=== PATIENT | female | born 1980 | race Caucasian/White ===

== ENCOUNTER 2018-10-26 12:00 | Emergency (ER) | payer BC ==
[2018-10-26 12:06] VITALS: TEMP 98.1
[2018-10-26] MEDS ORDERED: SODIUM CHLORIDE 0.9% 1,000 ML IV STA (12:17)
--- NOTE | 2018-10-26 12:30 | ED ---
General Adult HPI - General Chief complaint: Headache Stated complaint: head pain Time Seen by Provider: 10/26/18 12:04 Source: patient, RN notes reviewed Mode of arrival: ambulatory Limitations: no limitations - History of Present Illness Initial comments: Patient is a pleasant 38-year-old female presenting to the emergency Department with complaint of headache. Patient does have a history of migraine headaches that she gets around once per month. Patient has had 3 headaches this week that feel different from her typical migraine headaches. Headaches have a quick onset within minutes. First headache lasted only 10 minutes and was around 6 days ago. Second headache lasted around 30 minutes. Third headache was 2 days ago and lasted a couple of hours. This one was more severe. Headache was right-sided. Patient did have associated photophobia and lightheadedness and nausea. At this time patient only has mild discomfort rated 2 or 3/10 and is described as pressure. Patient does have a family history of cerebral aneurysm on her mother's side of the family including her mother. Patient denies ever having confusion or speech problems. No weakness or loss of sensation. No fevers. - Related Data Home Medications Medication Instructions Recorded Confirmed diphenhydrAMINE HCL [Benadryl] 25 mg PO Q6HR PRN 10/26/18 10/26/18 Allergies Allergy/AdvReac Type Severity Reaction Status Date / Time No Known Allergies Allergy Verified 10/26/18 12:20 Review of Systems ROS Statement: Those systems with pertinent positive or pertinent negative responses have been documented in the HPI. ROS Other: All systems not noted in ROS Statement are negative. Constitutional: Denies: fever Eyes: Denies: eye pain ENT: Denies: ear pain Respiratory: Denies: cough Cardiovascular: Denies: chest pain Endocrine: Denies: fatigue Gastrointestinal: Denies: abdominal pain Genitourinary: Denies: urgency Musculoskeletal: Denies: back pain Skin: Denies: rash Neurological: Reports: as per HPI, headache. Denies: weakness, numbness, confusion Past Medical History Past Medical History: No Reported History History of Any Multi-Drug Resistant Organisms: None Reported Additional Past Surgical History / Comment(s): LEFT NEPHRECTOMY Past Psychological History: No Psychological Hx Reported Smoking Status: Never smoker Past Alcohol Use History: None Reported Past Drug Use History: None Reported General Exam Limitations: no limitations General appearance: alert, in no apparent distress Head exam: Present: atraumatic Eye exam: Present: normal appearance, PERRL, EOMI. Absent: nystagmus ENT exam: Present: normal oropharynx Neck exam: Present: normal inspection Respiratory exam: Present: normal lung sounds bilaterally Cardiovascular Exam: Present: regular rate, normal rhythm GI/Abdominal exam: Present: soft. Absent: tenderness Extremities exam: Present: normal inspection Neurological exam: Present: alert, CN II-XII intact. Absent: motor sensory deficit Expanded Neurological exam: Present: protecting the airway Speech: Present: fluid speech Cranial nerves: EOM's Intact: Normal, Facial Sensation: Normal Cerebellar function: Finger to Nose: Normal Sensory exam: Upper Extremity Light Touch: Normal, Lower Extremity Light Touch: Normal Motor strength exam: RUE: 5, LUE: 5, RLE: 5, LLE: 5 Eye Response: (4) open spontaneously Motor Response: (6) obeys commands Verbal Response: (5) oriented Psychiatric exam: Present: normal affect, normal mood Skin exam: Present: normal color Course Vital Signs 10/26/18 10/26/18 12:03 14:48 Temperature 98.1 F Pulse Rate 75 79 Respiratory 16 18 Rate Blood Pressure 141/79 109/82 O2 Sat by Pulse 100 99 Oximetry Medical Decision Making - Medical Decision Making Patient reevaluated and still resting comfortably in bed. Patient states no significant complaints at this time. Patient family updated on results and need for follow-up. - Lab Data Result diagrams: 10/26/18 12:21 10/26/18 12:21 Lab Results 10/26/18 10/26/18 10/26/18 Range/Units 12:20 12:21 12:21 WBC 9.8 (3.8-10.6) k/uL RBC 5.10 (3.80-5.40) m/uL Hgb 12.8 (11.4-16.0) gm/dL Hct 40.6 (34.0-46.0) % MCV 79.7 L (80.0-100.0) fL MCH 25.1 (25.0-35.0) pg MCHC 31.5 (31.0-37.0) g/dL RDW 16.0 H (11.5-15.5) % Plt Count 571 H (150-450) k/uL Neutrophils % 70 % Lymphocytes % 19 % Monocytes % 6 % Eosinophils % 1 % Basophils % 1 % Neutrophils # 6.8 (1.3-7.7) k/uL Lymphocytes # 1.9 (1.0-4.8) k/uL Monocytes # 0.6 (0-1.0) k/uL Eosinophils # 0.1 (0-0.7) k/uL Basophils # 0.1 (0-0.2) k/uL Hypochromasia Slight Anisocytosis Slight PT (9.0-12.0) sec INR (<1.2) APTT (22.0-30.0) sec Sodium 142 (137-145) mmol/L Potassium 4.7 (3.5-5.1) mmol/L Chloride 105 (98-107) mmol/L Carbon Dioxide 25 (22-30) mmol/L Anion Gap 12 mmol/L BUN 12 (7-17) mg/dL Creatinine 0.68 (0.52-1.04) mg/dL Est GFR (CKD-EPI)AfAm >90 (>60 ml/min/1.73 sqM) Est GFR (CKD-EPI)NonAf >90 (>60 ml/min/1.73 sqM) Glucose 94 (74-99) mg/dL Calcium 10.0 (8.4-10.2) mg/dL Total Bilirubin 0.3 (0.2-1.3) mg/dL AST 28 (14-36) U/L ALT 31 (9-52) U/L Alkaline Phosphatase 64 (38-126) U/L Total Protein 8.0 (6.3-8.2) g/dL Albumin 4.6 (3.5-5.0) g/dL Urine HCG, Qual Not Detected (Not Detectd) 10/26/18 Range/Units 12:21 WBC (3.8-10.6) k/uL RBC (3.80-5.40) m/uL Hgb (11.4-16.0) gm/dL Hct (34.0-46.0) % MCV (80.0-100.0) fL MCH (25.0-35.0) pg MCHC (31.0-37.0) g/dL RDW (11.5-15.5) % Plt Count (150-450) k/uL Neutrophils % % Lymphocytes % % Monocytes % % Eosinophils % % Basophils % % Neutrophils # (1.3-7.7) k/uL Lymphocytes # (1.0-4.8) k/uL Monocytes # (0-1.0) k/uL Eosinophils # (0-0.7) k/uL Basophils # (0-0.2) k/uL Hypochromasia Anisocytosis PT 9.9 (9.0-12.0) sec INR 1.0 (<1.2) APTT 25.6 (22.0-30.0) sec Sodium (137-145) mmol/L Potassium (3.5-5.1) mmol/L Chloride (98-107) mmol/L Carbon Dioxide (22-30) mmol/L Anion Gap mmol/L BUN (7-17) mg/dL Creatinine (0.52-1.04) mg/dL Est GFR (CKD-EPI)AfAm (>60 ml/min/1.73 sqM) Est GFR (CKD-EPI)NonAf (>60 ml/min/1.73 sqM) Glucose (74-99) mg/dL Calcium (8.4-10.2) mg/dL Total Bilirubin (0.2-1.3) mg/dL AST (14-36) U/L ALT (9-52) U/L Alkaline Phosphatase (38-126) U/L Total Protein (6.3-8.2) g/dL Albumin (3.5-5.0) g/dL Urine HCG, Qual (Not Detectd) - Radiology Data Radiology results: report reviewed (Computed tomography scan of the brain shows no acute process. CT angiogram of the brain shows no occlusion, dissection, or aneurysm.) Disposition Clinical Impression: Headache Disposition: HOME SELF-CARE Condition: Stable Instructions: Acute Headache (ED) Additional Instructions: Please follow-up with primary care physician in the next day or 2 for recheck. Return for increased pain, confusion, weakness, speech problems, worsening or change in symptoms or any other concerns. Is patient prescribed a controlled substance at d/c from ED?: No Referrals: Farhan Mix MD [Primary Care Provider] - 1-2 days Time of Disposition: 15:26
[2018-10-26 12:48] LABS: Anisocytosis Slight; Basophils # (A) 0.1 k/uL (0-0.2); Basophils % (A) 1 %; Eosinophils # (A) 0.1 k/uL (0-0.7); Eosinophils % (A) 1 %; HCT 40.6 % (34.0-46.0); HGB 12.8 gm/dL (11.4-16.0); Hypochromasia Slight; Lymphocytes # (A) 1.9 k/uL (1.0-4.8); Lymphocytes % (A) 19 %; MCH 25.1 pg (25.0-35.0); MCHC 31.5 g/dL (31.0-37.0); MCV 79.7 fL (80.0-100.0); Mean Platelet Volume 6.4; Monocytes # (A) 0.6 k/uL (0-1.0); Monocytes % (A) 6 %; Neutrophils # (A) 6.8 k/uL (1.3-7.7); Neutrophils % (A) 70 %; Platelet Count 571 k/uL (150-450); WBC 9.8 k/uL (3.8-10.6)
[2018-10-26 12:50] LABS: ALT 31 U/L (9-52); AST 28 U/L (14-36); Albumin 4.6 g/dL (3.5-5.0); Alkaline Phosphatase 64 U/L (38-126); Anion Gap 12 mmol/L; Blood Urea Nitrogen 12 mg/dL (7-17); Carbon Dioxide 25 mmol/L (22-30); Chloride 105 mmol/L (98-107); Glucose 94 mg/dL (74-99); Potassium 4.7 mmol/L (3.5-5.1); Sodium 142 mmol/L (137-145); Total Bilirubin 0.3 mg/dL (0.2-1.3)
[2018-10-26 13:02] LABS: Partial Thromboplastin Time 25.6 sec (22.0-30.0); Prothrombin Time 9.9 sec (9.0-12.0)
--- NOTE | 2018-10-26 13:29 | CT ---
EXAMINATION TYPE: CT brain wo con DATE OF EXAM: 10/26/2018 COMPARISON: HISTORY: Headache CT DLP: 1897.[address] of the brain was performed. The ventricles, basal cisterns and sulci overlying the cerebral convexities demonstrate a normal appe arance. There is no evidence for intracranial hemorrhage or sulcal effacement. No mass effects are seen. Osseous calvarium is intact. If symptoms persist consider MRI as clinically warranted. IMPRESSION: 1. No acute intracranial process is seen at this time.
[2018-10-26 14:50] VITALS: BP 109/82; PULSE 79; RESP 18
--- NOTE | 2018-10-26 15:18 | CT ---
EXAMINATION TYPE: CT angio head DATE OF EXAM: 10/26/2018 HISTORY: Headache COMPARISON: CT brain dictation of the same date CT DLP: 1897.1 mGycm. Automated Exposure Control for Dose Reduction was Utilized. TECHNIQUE: CTA scan of the neck is performed with IV Contrast, patient injected with 100 mL of Isovu e 370, axial images are obtained, coronal and sagittal reformatted images are reviewed. Three-D recon structed images are created on an independent workstation and reviewed. FINDINGS: Carotid/Vascular Structures: There is no hemodynamically significant stenosis within the visualized c ervical portions or intracranial portions of the internal carotid arteries, vertebral arteries, basil ar arteries, or major intracranial vasculature. No aneurysm is identified. Posterior communicating ar teries appear diminutive but do appear present. [place] appears intact. No dissection or foc al stenosis is seen. No arterial venous malformation is identified. Visualized portions of the brain are discussed in the CT brain dictation of the same date. IMPRESSION: No evidence of intracranial vascular occlusion, dissection or aneurysm.
== END 2018-10-26 15:33 | disposition home or self-care (01) ==
LOC: EC 12:00
DX: R51 Headache (principal); R11.0 Nausea; H53.149 Visual discomfort, unspecified; Z90.5 Acquired absence of kidney; Z82.49 Family history of ischemic heart disease and other diseases of the circulatory system
CPT/HCPCS: 36415; 80053; 85025; 85610; 85730; 81025; 70496; 70450; 99284; 96360; Q9967

== ENCOUNTER → 2018-11-20 | Outpatient (CLI) | payer BC ==
--- NOTE | 2018-11-20 11:06 | MR ---
EXAMINATION TYPE: MR brain wo con DATE OF EXAM: 11/20/2018 COMPARISON: 10/26/[address] [employer] head demonstrating no acute intracranial process and no evidence of intracranial vascular occlusion, dissection or aneurysm. HISTORY: Primary thunderclap headache TECHNIQUE: Multiplanar, multisequence images of the brain and brainstem is performed without intravenous contras t. FINDINGS: Diffusion weighted images demonstrate no evidence of a recent infarct or other diffusion ab normality. There is no extra-axial fluid collection or significant white matter signal abnormality. The ventricular system and cisternal spaces are normal in size and appearance. The brain volume is age appropriate. Midline structures demonstrate normal morphology. The craniocervical junction appears within normal limits. The dural venous sinuses appear patent. The visualized sinuses are clear and the globes are intact. There is near complete opacification of the right maxillary sinus and trace amount of middle ear fluid findings suggest otomastoiditis. There is leftward nasal septal deviation and left-sided mu cosal hypertrophy of the nasal turbinates. Major intracranial flow voids are maintained. Secretions a re noted in the posterior nasopharynx. IMPRESSION: 1. Interval near complete opacification of the right mastoid air cells and middle ear cavity fluid reyes ggesting otomastoiditis. Correlate with clinical symptoms. Left-sided nasal turbinate mucosal hypertr ophy and leftward nasal septal deviation are also seen. 2. No significant white matter change, no acute infarct, and no midline shift. 3. If there is further concern for aneurysm MRA could be performed despite the negative CT angiogram head.
== END | disposition home or self-care (01) ==
LOC: RADMRIMAIN 08:18
PROVIDERS: ATTEND Family Medicine
DX: G44.53 Primary thunderclap headache (principal)
CPT/HCPCS: 70551

== ENCOUNTER → 2019-03-02 | Outpatient (CLI) | payer BC ==
--- NOTE | 2019-03-02 10:34 | MR ---
EXAMINATION TYPE: MR angio head wo con DATE OF EXAM: 03/02/2019 COMPARISON: CTA head October 26, 2018 HISTORY: thunderclap headache vascular ALBERTO TECHNIQUE: Time of flight images focusing on the [place] were performed without contrast.. 2-D and 3-D postprocessing imaging is performed on MRI scanner. FINDINGS: There is codominant vertebral basilar system. Vertebral arteries are patent to basilar junc tion. There are patent bilateral posterior communicating arteries seen. There is no significant focal stenosis or aneurysmal change in the posterior circulation. There is patent anterior communicating artery. There is no significant focal stenosis or aneurysmal c hange in the anterior circulation. IMPRESSION: No significant focal stenosis or aneurysmal change at the level of the [place]. No significant change from comparison CTA head study.
== END | disposition home or self-care (01) ==
LOC: RADMRIMAIN 09:05
PROVIDERS: ATTEND Psychiatry & Neurology Neurology
DX: G44.1 Vascular headache, not elsewhere classified (principal); G44.53 Primary thunderclap headache
CPT/HCPCS: 70544

== ENCOUNTER 2019-05-22 09:31 | Day surgery (SDC) | payer BC ==
[2019-05-19 15:18] VITALS: BMI 30.9
[~2019-05-22 09:31] MED LIST: LACTATED RINGERS 1,000 ML IV SCH
[2019-05-22 09:51] VITALS: TEMP 97.2
[2019-05-22] MEDS ORDERED: LIDOCAINE 1% 20 ML VIAL (10MG/ML) FOR IV START INTRADERMA ONE (10:07)
[2019-05-22] MEDS ORDERED: PROPOFOL 10 MG/ML 20 ML VIAL IV ONE (10:44)
--- NOTE | 2019-05-22 11:02 | P.PCN ---
Date of Procedure: 05/22/19 Procedure(s) Performed: BRIEF HISTORY: Patient is a 38-year-old pleasant white female scheduled for an elective colonoscopy as a part of evaluation of intermittent diarrhea for the last 2 years duration. She has these episodes once a month and lasts for about a week to 10 days. During these episodes has bowel movements any from 10-12 a day which are loose to watery in consistency. In between episodes she is asymptomatic. In view of the symptoms she is scheduled for colonoscopy to evaluate further. PROCEDURE PERFORMED: Colonoscopy with biopsies. PREOPERATIVE DIAGNOSIS: Chronic intermittent diarrhea. IV sedation per Anesthesia. PROCEDURE: After informed consent was obtained, the patient, was brought into the endoscopy unit. IV sedation was administered by Anesthesia under continuous monitoring. Digital rectal examination was normal. Initially the Olympus CF-160 flexible video colonoscope was then inserted in the rectum, gradually advanced into the cecum without any difficulty. Careful examination was performed as the scope was gradually being withdrawn. Ileocecal valve and the appendiceal orifice were visualized and appeared normal. Prep was excellent. The ileocecal valve appeared deformed and there was narrowing of the terminal ileum and the scope could not be advanced into this area. There were multiple pseudopolyps noted on the ileocecal valve with scattered erosions and ulcerations and diffuse erosions in the cecum and multiple biopsies were done from these areas. The rest of themMucosa of the cecum, ascending colon, transverse colon, descending colon, sigmoid colon, and rectum appeared normal. Retroflexion was performed in the rectum and no lesions were seen. The patient tolerated the procedure well. IMPRESSION: Deformed ileocecal valve with narrowing suspicious for Crohn's disease Pseudopolyps noted on the ileocecal valve as well as part of the cecum status post multiple biopsies. Terminal ileum not intubated RECOMMENDATIONS: Findings of this examination were discussed with the patient as well as a family. She was advised to follow with the biopsy results and she'll be seen in office in 2 weeks...
[2019-05-22 11:29] VITALS: BP 115/62; PULSE 60; RESP 16
== END 2019-05-22 12:09 | disposition home or self-care (01) ==
LOC: ORWHC2ENDO 09:31
PROVIDERS: ATTEND Internal Medicine Gastroenterology
DX: K52.9 Noninfective gastroenteritis and colitis, unspecified (principal)
CPT/HCPCS: 81025; 88305; 45380; J2704

== ENCOUNTER → 2019-06-02 | Outpatient (CLI) | payer BC ==
[2019-06-02 16:26] LABS: Anisocytosis Slight; HCT 37.7 % (34.0-46.0); HGB 11.5 gm/dL (11.4-16.0); Hypochromasia Marked; MCH 24.7 pg (25.0-35.0); MCHC 30.4 g/dL (31.0-37.0); MCV 81.2 fL (80.0-100.0); Mean Platelet Volume 7.1; Platelet Count 534 k/uL (150-450); RBC 4.64 m/uL (3.80-5.40); RDW 16.1 % (11.5-15.5); WBC 9.4 k/uL (3.8-10.6)
[2019-06-02 17:14] LABS: Erythrocyte Sedimentation Rate 18 mm/hr (0-20)
[2019-06-03 00:14] LABS: Folate, Serum 18.6 ng/mL
[2019-06-03 00:42] LABS: Hepatitis A Antibody IgM Non-Reactive (Non-Reactive); Hepatitis B Core IgM Non-Reactive (Non-Reactive)
== END | disposition home or self-care (01) ==
LOC: LABWHC1 15:24
PROVIDERS: ATTEND Physician Assistant
DX: K50.80 Crohn's disease of both small and large intestine without complications (principal)
CPT/HCPCS: 36415; 80074; 82607; 82746; 85027; 85652; 86140

== ENCOUNTER → 2019-06-25 | Outpatient (CLI) | payer BC ==
--- NOTE | 2019-06-25 13:17 | CT ---
EXAMINATION TYPE: CT abdomen pelvis w con DATE OF EXAM: 06/25/2019 HISTORY: Episode of gross hematuria x 2-3 days approximately [address] DLP: 1392mGycm Automated Exposure Control for Dose Reduction was Utilized. CONTRAST: CT scan of the abdomen and pelvis is performed with IV Contrast, patient injected with 100 mL of Isov ue M300. COMPARISON: None. FINDINGS: LUNG BASES: No significant abnormality is appreciated. LIVER/GB: Liver is diffusely low dense consistent with fatty infiltration. PANCREAS: No significant abnormality is seen. SPLEEN: No significant abnormality is seen. ADRENALS: No significant abnormality is seen. KIDNEYS: Symmetrical medullary uptake and excretion from both kidneys without concerning solid or cys tic renal mass or hydronephrosis identified bilaterally no renal calculi are observed. No intralumina l calculus in poorly distended bladder. BOWEL: Oral contrast reaches level of rectum. Severe wall thickening at level of the terminal ileum i s noted. No suspicious small and large bowel dilatation. UTERUS/ADNEXA: Anteverted uterus is seen. Central 1.3 cm hyperdensity lower uterine segment endometri al canal sagittal image 33 corresponding to axial image 78 of uncertain etiology. No tampon identifie d in the vaginal canal to suggest active bleeding. Consider hCG correlation to exclude positive IUP t salma felt not likely. Favor something such as submucosal fibroid or much less likely large endometri al polyp. Right ovary is normal in size near axial image 73 with rim hyperdense 1.4 cm cyst could ref lect corpus luteal cyst from recent ovulation. There is a partially calcified 1.2 cm round area adjac ent to medial margin right ovary and anterior to uterus with indistinct fat planes favoring subserosa l or exophytic small fibroid. Left ovary not identified. No suspicious left pelvic masses are seen LYMPH NODES: No greater than 1cm abdominal or pelvic lymph nodes are appreciated. OSSEOUS STRUCTURES: No significant abnormality is seen. OTHER: No significant additional abnormality is seen. IMPRESSION: 1. No suspicious findings seen to account for patient's symptoms hematuria. 2. Moderate to severe enteritis at level of the terminal ileum may be chronic in age as there is no s ignificant current surrounding fat stranding. Follow-up advised to exclude Crohn's disease. 3. Attention to uterus/adnexa as detailed above. Clinical correlation advised. Consider pelvic ultras ound follow-up.
== END | disposition home or self-care (01) ==
LOC: RADCTMAIN 09:49
PROVIDERS: ATTEND Family Medicine
DX: K52.9 Noninfective gastroenteritis and colitis, unspecified (principal); R31.9 Hematuria, unspecified; N91.2 Amenorrhea, unspecified
CPT/HCPCS: 81025; 74177; Q9967

== ENCOUNTER → 2020-01-25 | Outpatient (CLI) | payer BC ==
[2020-01-25 17:08] LABS: HCT 39.3 % (34.0-46.0); HGB 11.9 gm/dL (11.4-16.0); Hypochromasia Slight; MCH 24.5 pg (25.0-35.0); MCHC 30.3 g/dL (31.0-37.0); MCV 80.9 fL (80.0-100.0); Platelet Count 496 k/uL (150-450); RBC 4.86 m/uL (3.80-5.40); RDW 15.4 % (11.5-15.5); WBC 9.5 k/uL (3.8-10.6)
[2020-01-25 17:24] LABS: ALT 17 U/L (4-34); AST 27 U/L (14-36); African American GFR (CKD) >90 (>60 ml/min/1.73 sqM); Albumin 4.7 g/dL (3.5-5.0); Alkaline Phosphatase 49 U/L (38-126); Anion Gap 9 mmol/L; Blood Urea Nitrogen 9 mg/dL (7-17); C Reactive Protein 8.3 mg/L (<10.0); Calcium 9.4 mg/dL (8.4-10.2); Carbon Dioxide 28 mmol/L (22-30); Chloride 102 mmol/L (98-107); Glucose 113 mg/dL (74-99); Non-African American GFR(CKD) >90 (>60 ml/min/1.73 sqM); Potassium 4.4 mmol/L (3.5-5.1); Sodium 139 mmol/L (137-145); Total Bilirubin 0.2 mg/dL (0.2-1.3); Total Protein 7.9 g/dL (6.3-8.2)
[2020-01-25 17:56] LABS: Erythrocyte Sedimentation Rate 11 mm/hr (0-20)
--- NOTE | 2020-01-26 07:00 | US ---
EXAMINATION TYPE: US pelvis complete transvag DATE OF EXAM: 01/25/2020 COMPARISON: NONE CLINICAL HISTORY: R10.2 Pelvic pain. TECHNIQUE: Transvaginal (TV) and Transabdominal (TA) . Transabdominal sonographic images of the pel vis were acquired. Transvaginal sonographic images were medically necessary to better assess the fol lowing anatomy: uterus, endometrium History of endometriosis, endometrioma in left ovary removed with oophorectomy. Date of LMP: 01-02-20 EXAM MEASUREMENTS: Uterus: 7.8 x 3.0 x 4.0 cm Endometrial Stripe: 1.2 cm Right Ovary: 2.6 x 1.7 x 1.4 cm Left Ovary: Surgically absent 1. Uterus: Heterogenous uterus, with probable fibroids, the largest measuring 1.7 x 1.4 x 1.3cm. This could be submucosal in location. 2. Endometrium: Within normal limits of size for a premenopausal females 3. Right Ovary: wnl 4. Left Ovary: Surgically absent 5. Bilateral Adnexa: wnl 6. Posterior cul-de-sac: wnl IMPRESSION: 1. Heterogenous myometrium with probable leiomyomas the most circumscribed and largest measuring 1.7 cm that may be submucosal in location. 2. Surgical absence of the left ovary.
== END | disposition home or self-care (01) ==
LOC: RADUSWWP 15:38
PROVIDERS: ATTEND Family Medicine
DX: R10.2 Pelvic and perineal pain (principal); K50.80 Crohn's disease of both small and large intestine without complications; Z90.721 Acquired absence of ovaries, unilateral
CPT/HCPCS: 36415; 76830; 76856; 80053; 85027; 85652; 86140

== ENCOUNTER → 2020-05-10 | Outpatient (CLI) | payer BC ==
[2020-05-10 15:05] LABS: HCT 36.7 % (34.0-46.0); HGB 11.4 gm/dL (11.4-16.0); Hypochromasia Marked; MCH 25.2 pg (25.0-35.0); MCHC 31.1 g/dL (31.0-37.0); Mean Platelet Volume 7.5; Platelet Count 525 k/uL (150-450); RBC 4.53 m/uL (3.80-5.40); RDW 15.7 % (11.5-15.5)
[2020-05-10 16:28] LABS: Erythrocyte Sedimentation Rate 13 mm/hr (0-20)
[2020-05-10 23:37] LABS: African American GFR (CKD) 109.2 (60.0-200.0); Albumin 4.7 g/dL (3.80-4.90); Albumin/Globulin Ratio 1.96 (1.60-3.17); Anion Gap 8.6 mmol/L (4.00-12.00); BUN/Creat Ratio 16.25 Ratio (12.00-20.00); C Reactive Protein 0.5 mg/dL (0.0-0.8); Calcium 9.7 mg/dL (8.7-10.3); Carbon Dioxide 27.4 mmol/L (21.6-31.8); Globulin 2.4 g/dL (1.6-3.3); Non-African American GFR(CKD) 94.2 (60.0-200.0); Potassium 4.3 mmol/L (3.5-5.5); Total Bilirubin 0.4 mg/dL (0.3-1.2); Total Protein 7.1 g/dL (6.2-8.2)
== END | disposition home or self-care (01) ==
LOC: LABWHC1 14:34
PROVIDERS: ATTEND Physician Assistant
DX: K50.80 Crohn's disease of both small and large intestine without complications (principal)
CPT/HCPCS: 36415; 80053; 85027; 85652; 86140

== ENCOUNTER 2021-03-18 05:54 | Emergency (ER) | payer BC ==
[2021-03-18 06:02] VITALS: BP 145/90; PULSE 78; RESP 19; TEMP 97.9
--- NOTE | 2021-03-18 06:24 | ED ---
Abdominal Pain HPI - General Chief Complaint: Abdominal Pain Stated Complaint: abd/back pain,nausea Time Seen by Provider: 03/18/21 06:05 Source: patient Mode of arrival: wheelchair - History of Present Illness Initial Comments: 40-year-old female with hx of crohns diease on joleen presenting to the emergency department today for chief complaint of left lower quadrant abdominal pain that radiates to the back x 2 days. pt states that for the past two days she has had llq pain that radiates to the back. she states it seems to go away with defecation. Pt states she has had nausea associated with the pain. Denies rectal bleeding. No dark stool. Denies upper abdominal pain. Pt denies fevers. Pt denies vaginal bleeding, . But states she has had blood in her urine x 2 days, no pain. Patient denies chest pain dyspnea. patient appears nontoxic - Related Data Home Medications Medication Instructions Recorded Confirmed Adalimumab [Humira Pen] 40 mg SQ Q14D 03/18/21 03/18/21 Previous Rx's Medication Instructions Recorded Ketorolac [Toradol] 10 mg PO Q8H PRN 3 Days #9 tab 03/18/21 Allergies Allergy/AdvReac Type Severity Reaction Status Date / Time No Known Allergies Allergy Verified 03/18/21 07:56 Review of Systems ROS Statement: Those systems with pertinent positive or pertinent negative responses have been documented in the HPI. ROS Other: All systems not noted in ROS Statement are negative. Past Medical History Past Medical History: No Reported History Additional Past Medical History / Comment(s): chrons History of Any Multi-Drug Resistant Organisms: None Reported Additional Past Surgical History / Comment(s): L Oophorectomy. Past Anesthesia/Blood Transfusion Reactions: No Reported Reaction Past Psychological History: No Psychological Hx Reported Smoking Status: Never smoker Past Alcohol Use History: None Reported Past Drug Use History: None Reported - Past Family History Mother Family Medical History: No Reported History General Exam - General Exam Comments Initial Comments: General: The patient is awake and alert, in no distress Eye: +3 mm pupils are equal, round and reactive to light, extra-ocular movements are intact. No nystagmus. There is normal conjunctiva bilaterally. No signs of icterus. Ears, nose, mouth and throat: There are moist mucous membranes and no oral lesions. Neck: The neck is supple, there is no tenderness or JVD. Cardiovascular: There is a regular rate and rhythm. No murmur, rub or gallop is appreciated. Respiratory: Lungs are clear to auscultation, respirations are non-labored, breath sounds are equal. No wheezes, stridor, rales, or rhonchi. Gastrointestinal: Soft, non-distended, diffuse lower abdominal tenderness, more significant in the LLQ., abdomen without masses or organomegaly noted. There is no rebound or guarding present. Musculoskeletal: Normal ROM, no tenderness. Strength 5/5. Sensation intact. Radial and DP pulses equal bilaterally 2+. Neurological: A&O x 3. CN II-XII intact grossly, There are no obvious motor or sensory deficits. Coordination appears grossly intact. Speech is normal. Skin: Skin is warm and dry and no rashes or lesions are noted. Psychiatric: Cooperative, appropriate mood & affect, normal judgment. Course Vital Signs 03/18/21 05:57 Temperature 97.9 F Pulse Rate 78 Respiratory 19 Rate Blood Pressure 145/90 O2 Sat by Pulse 100 Oximetry Medical Decision Making - Medical Decision Making LLQ pain. LUVJ stone. Hx hematuria. this all clinically correlates.no fevers. pain controlled. no hx of dark or bloody stools. no recent HgB in last 10 months for accurate comparison. pt has standing order for cbc. i recommended repeat in 2 days. return for rectal bleeding or worsening HgB. patient requesting discharge. Dr leung agreeable to care plan and discharge. pt discharged appearing well. - Lab Data Result diagrams: 03/18/21 06:34 03/18/21 06:34 Lab Results 03/18/21 03/18/21 03/18/21 Range/Units 06:34 06:34 06:34 WBC 9.3 (3.8-10.6) k/uL RBC 4.98 (3.80-5.40) m/uL Hgb 9.9 L (11.4-16.0) gm/dL Hct 33.1 L (34.0-46.0) % MCV 66.5 L (80.0-100.0) fL MCH 19.8 L (25.0-35.0) pg MCHC 29.8 L (31.0-37.0) g/dL RDW 16.5 H (11.5-15.5) % Plt Count 496 H (150-450) k/uL MPV 6.9 Neutrophils % 57 % Lymphocytes % 26 % Monocytes % 8 % Eosinophils % 5 % Basophils % 1 % Neutrophils # 5.3 (1.3-7.7) k/uL Lymphocytes # 2.4 (1.0-4.8) k/uL Monocytes # 0.8 (0-1.0) k/uL Eosinophils # 0.5 (0-0.7) k/uL Basophils # 0.1 (0-0.2) k/uL Hypochromasia Marked Poikilocytosis Slight Anisocytosis Slight Microcytosis Marked Sodium (137-145) mmol/L Potassium (3.5-5.1) mmol/L Chloride (98-107) mmol/L Carbon Dioxide (22-30) mmol/L Anion Gap mmol/L BUN (7-17) mg/dL Creatinine (0.52-1.04) mg/dL Est GFR (CKD-EPI)AfAm (>60 ml/min/1.73 sqM) Est GFR (CKD-EPI)NonAf (>60 ml/min/1.73 sqM) Glucose (74-99) mg/dL Calcium (8.4-10.2) mg/dL Total Bilirubin (0.2-1.3) mg/dL AST (14-36) U/L ALT (4-34) U/L Alkaline Phosphatase (38-126) U/L Total Protein (6.3-8.2) g/dL Albumin (3.5-5.0) g/dL Urine Color Yellow Urine Appearance Cloudy H (Clear) Urine pH 5.5 (5.0-8.0) Ur Specific [place] 1.015 (1.001-1.035) Urine Protein Negative (Negative) Urine Glucose (UA) Negative (Negative) Urine Ketones Negative (Negative) Urine Blood Trace H (Negative) Urine Nitrite Negative (Negative) Urine Bilirubin Negative (Negative) Urine Urobilinogen <2.0 (<2.0) mg/dL Ur Leukocyte Esterase Negative (Negative) Urine RBC 6 H (0-5) /hpf Urine WBC 4 (0-5) /hpf Ur Squamous Epith Cells 12 H (0-4) /hpf Urine Bacteria Occasional H (None) /hpf Urine Mucus Moderate H (None) /hpf Urine HCG, Qual Not Detected (Not Detectd) 03/18/21 Range/Units 06:34 WBC (3.8-10.6) k/uL RBC (3.80-5.40) m/uL Hgb (11.4-16.0) gm/dL Hct (34.0-46.0) % MCV (80.0-100.0) fL MCH (25.0-35.0) pg MCHC (31.0-37.0) g/dL RDW (11.5-15.5) % Plt Count (150-450) k/uL MPV Neutrophils % % Lymphocytes % % Monocytes % % Eosinophils % % Basophils % % Neutrophils # (1.3-7.7) k/uL Lymphocytes # (1.0-4.8) k/uL Monocytes # (0-1.0) k/uL Eosinophils # (0-0.7) k/uL Basophils # (0-0.2) k/uL Hypochromasia Poikilocytosis Anisocytosis Microcytosis Sodium 139 (137-145) mmol/L Potassium 4.6 (3.5-5.1) mmol/L Chloride 103 (98-107) mmol/L Carbon Dioxide 29 (22-30) mmol/L Anion Gap 7 mmol/L BUN 11 (7-17) mg/dL Creatinine 0.72 (0.52-1.04) mg/dL Est GFR (CKD-EPI)AfAm >90 (>60 ml/min/1.73 sqM) Est GFR (CKD-EPI)NonAf >90 (>60 ml/min/1.73 sqM) Glucose 95 (74-99) mg/dL Calcium 9.3 (8.4-10.2) mg/dL Total Bilirubin 0.6 (0.2-1.3) mg/dL AST 53 H (14-36) U/L ALT 21 (4-34) U/L Alkaline Phosphatase 52 (38-126) U/L Total Protein 8.1 (6.3-8.2) g/dL Albumin 4.7 (3.5-5.0) g/dL Urine Color Urine Appearance (Clear) Urine pH (5.0-8.0) Ur Specific [place] (1.001-1.035) Urine Protein (Negative) Urine Glucose (UA) (Negative) Urine Ketones (Negative) Urine Blood (Negative) Urine Nitrite (Negative) Urine Bilirubin (Negative) Urine Urobilinogen (<2.0) mg/dL Ur Leukocyte Esterase (Negative) Urine RBC (0-5) /hpf Urine WBC (0-5) /hpf Ur Squamous Epith Cells (0-4) /hpf Urine Bacteria (None) /hpf Urine Mucus (None) /hpf Urine HCG, Qual (Not Detectd) Disposition Clinical Impression: Left ureteral calculus, Kidney stones, Anemia Disposition: HOME SELF-CARE Condition: Good Instructions (If sedation given, give patient instructions): Kidney Stones (ED) Additional Instructions: Please use medication as discussed. Please follow-up with family doctor in the next 2 days. repeat labs (CBC) in 2 days, review with PCP and compare with today value of 9.9 if dropping re-present to ER as discussed. Please return to emergency room if the symptoms increase or worsen or for any other concerns. Prescriptions: Ketorolac [Toradol] 10 mg PO Q8H PRN 3 Days #9 tab PRN Reason: Pain Is patient prescribed a controlled substance at d/c from ED?: No Referrals: Farhan Mix MD [Primary Care Provider] - 1-2 days Time of Disposition: 09:14
[2021-03-18 06:50] LABS: Anisocytosis Slight; Basophils # (A) 0.1 k/uL (0-0.2); Basophils % (A) 1 %; Eosinophils # (A) 0.5 k/uL (0-0.7); Eosinophils % (A) 5 %; HCT 33.1 % (34.0-46.0); HGB 9.9 gm/dL (11.4-16.0); Hypochromasia Marked; Lymphocytes # (A) 2.4 k/uL (1.0-4.8); Lymphocytes % (A) 26 %; MCH 19.8 pg (25.0-35.0); MCHC 29.8 g/dL (31.0-37.0); MCV 66.5 fL (80.0-100.0); Mean Platelet Volume 6.9; Microcytosis Marked; Monocytes # (A) 0.8 k/uL (0-1.0); Monocytes % (A) 8 %; Neutrophils # (A) 5.3 k/uL (1.3-7.7); Neutrophils % (A) 57 %; Platelet Count 496 k/uL (150-450); Poikilocytosis Slight; RBC 4.98 m/uL (3.80-5.40); RDW 16.5 % (11.5-15.5); WBC 9.3 k/uL (3.8-10.6)
[2021-03-18 07:01] LABS: ALT 21 U/L (4-34); African American GFR (CKD) >90 (>60 ml/min/1.73 sqM); Albumin 4.7 g/dL (3.5-5.0); Anion Gap 7 mmol/L; Blood Urea Nitrogen 11 mg/dL (7-17); Calcium 9.3 mg/dL (8.4-10.2); Carbon Dioxide 29 mmol/L (22-30); Chloride 103 mmol/L (98-107); Glucose 95 mg/dL (74-99); Non-African American GFR(CKD) >90 (>60 ml/min/1.73 sqM); Sodium 139 mmol/L (137-145); Total Bilirubin 0.6 mg/dL (0.2-1.3); Total Protein 8.1 g/dL (6.3-8.2)
[2021-03-18 07:03] LABS: AST 53 U/L (14-36); Alkaline Phosphatase 52 U/L (38-126); Potassium 4.6 mmol/L (3.5-5.1)
[2021-03-18 07:05] LABS: Appearance,Urine Cloudy (Clear); Bacteria,Urine Occasional /hpf; Bilirubin,Urine Negative (Negative); Blood,Urine Trace (Negative); Color,Urine Yellow; Glucose,Urine (UA) Negative (Negative); Ketones,Urine Negative (Negative); Leukocyte Esterase,Urine Negative (Negative); Mucus,Urine Moderate /hpf; Nitrite,Urine Negative (Negative); PH, Urine 5.5 (5.0-8.0); Protein,Urine Negative (Negative); RBC,Urine 6 /hpf (0-5); Specific Gravity,Urine 1.015 (1.001-1.035); Squamous Epithelial Cell,Urine 12 /hpf (0-4); Urobilinogen,Urine <2.0 mg/dL (<2.0); WBC,Urine 4 /hpf (0-5)
--- NOTE | 2021-03-18 08:12 | CT ---
EXAMINATION TYPE: CT abdomen pelvis w con DATE OF EXAM: 03/18/2021 HISTORY: LLQ pain, Radiation to back CT DLP: 1045mGycm Automated Exposure Control for Dose Reduction was Utilized. CONTRAST: CT scan of the abdomen and pelvis is performed without oral but with IV Contrast, patient injected wi th 100 ml mL of Isovue 300. COMPARISON: CT abdomen and pelvis June 25, 2019 FINDINGS: LUNG BASES: No significant abnormality is appreciated. LIVER/GB: Visualized liver is heterogeneously hypodense consistent with diffuse fatty infiltration. T here is a new calcified 9 mm dependent gallstone. No surrounding inflammatory change PANCREAS: No significant abnormality is seen. SPLEEN: No significant abnormality is seen. ADRENALS: No significant abnormality is seen. KIDNEYS: Symmetric cortical medullary uptake and excretion. There is new 2 mm calculus midpole of the right kidney coronal image 54. There is punctate 1 mm calculus at left UVJ seen best coronal image 5 9 causing mild left-sided hydronephrosis but no delayed excretion. BOWEL: No significant abnormality is seen. Appendix noted within normal limits. UTERUS/ADNEXA: Anteverted uterus redemonstrated. Persistent 1.5 cm oval exophytic hyperdense lesion a xial image 71 tapering subserosal fibroid. Slightly prominent septated right ovary axial image 70 red emonstrated. LYMPH NODES: No greater than 1cm abdominal or pelvic lymph nodes are appreciated. OSSEOUS STRUCTURES: Slight scoliotic curvature. OTHER: No significant additional abnormality is seen. IMPRESSION: There is a new punctate 1 mm calculus at left UVJ causing mild left-sided hydronephrosis. No delayed excretion noted.
[2021-03-18] MEDS ORDERED: ONDANSETRON 4 MG/2 ML VIAL IVP STA (08:17)
[2021-03-18] MEDS ORDERED: KETOROLAC 15 MG/ML 1 ML VIAL IVP STA (08:17)
== END 2021-03-18 09:26 | disposition home or self-care (01) ==
LOC: EC 05:54
DX: N20.2 Calculus of kidney with calculus of ureter (principal); D64.9 Anemia, unspecified; Z90.721 Acquired absence of ovaries, unilateral
CPT/HCPCS: 36415; 80053; 85025; 81001; 81025; 74177; 99284; 96374; 96375; J2405; J1885; Q9967

== ENCOUNTER → 2021-03-22 | Outpatient (CLI) | payer BC ==
[2021-03-22 23:08] LABS: HCT 30.7 % (37.2-46.3); HGB 8.2 g/dL (12.0-15.0); MCH 19.1 pg (27.0-32.0); MCHC 26.7 g/dL (32.0-37.0); MCV 71.6 fL (80.0-97.0); Mean Platelet Volume 9.9 fL (9.5-12.2); Platelet Count 554 X 10*3/uL (140-440); RBC 4.29 X 10*6/uL (4.10-5.20); RDW 18.5 % (11.5-14.5); WBC 11.16 X 10*3/uL (4.50-10.00)
[2021-03-23 00:47] LABS: Erythrocyte Sedimentation Rate 41 mm/Hr (0-20)
[2021-03-23 19:12] LABS: African American GFR (CKD) 108.4 (60.0-200.0); Albumin 5.1 g/dL (3.80-4.90); Albumin/Globulin Ratio 1.96 (1.60-3.17); Anion Gap 16.6 mmol/L (4.00-12.00); BUN/Creat Ratio 11.25 Ratio (12.00-20.00); C Reactive Protein 1.3 mg/dL (0.0-0.8); Carbon Dioxide 20.4 mmol/L (21.6-31.8); Globulin 2.6 g/dL (1.6-3.3); Non-African American GFR(CKD) 93.5 (60.0-200.0); Potassium 4.3 mmol/L (3.5-5.5); Total Bilirubin 0.3 mg/dL (0.3-1.2); Total Protein 7.7 g/dL (6.2-8.2)
== END | disposition home or self-care (01) ==
LOC: LABWHC1 15:45
PROVIDERS: ATTEND Physician Assistant
DX: K50.80 Crohn's disease of both small and large intestine without complications (principal)
CPT/HCPCS: 36415; 80053; 85027; 85652; 86140

== ENCOUNTER 2021-03-24 11:25 | Emergency (ER) | payer BC ==
[2021-03-24] MEDS ORDERED: SODIUM CHLORIDE 0.9% 500 ML 500 ML IV STA (11:59)
--- NOTE | 2021-03-24 12:10 | ED ---
Recheck HPI - General Chief Complaint: Recheck/Abnormal Lab/Rx Stated Complaint: Labs drawn last week per ER Nurse come back Time Seen by Provider: 03/24/21 11:43 Source: patient Mode of arrival: ambulatory Limitations: no limitations - History of Present Illness Initial Comments: Patient is a 40-year-old female with history of Crohn's, presenting to the emergency department for low hemoglobin levels. Patient states she was seen in our ER last week for kidney stones, her hemoglobin at that time was 9.9. Patient states she had lab orders from her GI doctor and she had them done 2 days ago that showed her hemoglobin had dropped to 8.2. Patient is complaining about fatigue, sleeping more at night, some lightheadedness as well. She is not believed she is still having blood in her urine, numbness she can notice. She states her pain is minimal at this time even though she doesn't feel like she has passed the stone yet. She denies any chest pain or shortness of breath. She is not on blood thinners. The only medicine she takes is Humira for her Crohn's. She has never had a transfusion. She has been borderline anemic in the past. She has no further complaints at this time. Upon arrival to the ER, her vital signs are stable. - Related Data Home Medications Medication Instructions Recorded Confirmed Adalimumab [Humira Pen] 40 mg SQ Q14D 03/18/21 03/18/21 Previous Rx's Medication Instructions Recorded Ketorolac [Toradol] 10 mg PO Q8H PRN 3 Days #9 tab 03/18/21 Allergies Allergy/AdvReac Type Severity Reaction Status Date / Time No Known Allergies Allergy Verified 03/24/21 11:36 Review of Systems ROS Statement: Those systems with pertinent positive or pertinent negative responses have been documented in the HPI. ROS Other: All systems not noted in ROS Statement are negative. Past Medical History Past Medical History: GERD/Reflux Additional Past Medical History / Comment(s): crohns, endometeriosis, History of Any Multi-Drug Resistant Organisms: None Reported Additional Past Surgical History / Comment(s): L Oophorectomy. Past Anesthesia/Blood Transfusion Reactions: No Reported Reaction Past Psychological History: No Psychological Hx Reported Smoking Status: Never smoker Past Alcohol Use History: None Reported Past Drug Use History: None Reported - Past Family History Mother Family Medical History: No Reported History General Exam - General Exam Comments Initial Comments: GENERAL: Patient is well-developed and well-nourished. Patient is nontoxic and in no acute distress. HEAD: Atraumatic, normocephalic. EYES: Pupils equal round and reactive to light, extraocular movements intact, sclera anicteric, conjunctiva are normal. Eyelids were unremarkable. ENT: TMs normal, nares patent, oropharynx clear without exudates. Moist mucous membranes. NECK: Normal range of motion, supple without lymphadenopathy or JVD. LUNGS: Unlabored respirations. Breath sounds clear to auscultation bilaterally and equal. No wheezes rales or rhonchi. HEART: Regular rate and rhythm without murmurs, rubs or gallops. ABDOMEN: Soft, nontender, normoactive bowel sounds. No guarding, no rebound. No masses appreciated. : Deferred MUSCULOSKELETAL: Normal extremities with adequate strength and normal range of motion, no pitting or edema. No clubbing or cyanosis. NEUROLOGICAL: Patient is alert and oriented x 3. Motor and sensory are also intact. Cranial nerves II through XII grossly intact. Symmetrical smile. Normal speech, normal gait. PSYCH: Normal mood, normal affect. SKIN: Warm, Dry, normal turgor, no rashes or lesions noted. Limitations: no limitations Course Vital Signs 03/24/21 11:30 Temperature 97.9 F Pulse Rate 89 Respiratory 16 Rate Blood Pressure 124/84 O2 Sat by Pulse 100 Oximetry Medical Decision Making - Medical Decision Making Patient is a 40-year-old female presenting for low hemoglobin. She was here last week for kidney stones, her hemoglobin was 9.9, it was rechecked 2 days ago and had dropped to 8.2 so her GI doctor told her to come in for reevaluation. She is currently not having active bleeding that she is aware of. Exam is unremarkable. The only medication she takes is Humira for Crohn's. Hemoglobin was rechecked today and is stable at 9.0. Urine is normal. Patient is not having any active bleeding. She can follow-up as an outpatient with her GI doctor or PCP to continue to monitor hemoglobin. Patient is stable for discharge. Patient is in agreement with this plan of care. Return parameters were discussed with the patient and they verbalized understanding. Case discussed with Dr. Gordon. - Lab Data Result diagrams: 03/24/21 12:07 03/24/21 12:07 Lab Results 03/24/21 03/24/21 03/24/21 Range/Units 12:07 12:07 12:07 WBC 9.3 (3.8-10.6) k/uL RBC 4.56 (3.80-5.40) m/uL Hgb 9.0 L (11.4-16.0) gm/dL Hct 29.8 L (34.0-46.0) % MCV 65.2 L (80.0-100.0) fL MCH 19.7 L (25.0-35.0) pg MCHC 30.3 L (31.0-37.0) g/dL RDW 16.8 H (11.5-15.5) % Plt Count 502 H (150-450) k/uL MPV 7.0 Neutrophils % 59 % Lymphocytes % 25 % Monocytes % 9 % Eosinophils % 2 % Basophils % 1 % Neutrophils # 5.5 (1.3-7.7) k/uL Lymphocytes # 2.3 (1.0-4.8) k/uL Monocytes # 0.9 (0-1.0) k/uL Eosinophils # 0.2 (0-0.7) k/uL Basophils # 0.1 (0-0.2) k/uL Hypochromasia Marked Poikilocytosis Slight Anisocytosis Slight Microcytosis Marked Sodium 136 L (137-145) mmol/L Potassium 4.6 (3.5-5.1) mmol/L Chloride 102 (98-107) mmol/L Carbon Dioxide 26 (22-30) mmol/L Anion Gap 8 mmol/L BUN 9 (7-17) mg/dL Creatinine 0.68 (0.52-1.04) mg/dL Est GFR (CKD-EPI)AfAm >90 (>60 ml/min/1.73 sqM) Est GFR (CKD-EPI)NonAf >90 (>60 ml/min/1.73 sqM) Glucose 89 (74-99) mg/dL Calcium 9.4 (8.4-10.2) mg/dL Total Bilirubin 0.4 (0.2-1.3) mg/dL AST 34 (14-36) U/L ALT 18 (4-34) U/L Alkaline Phosphatase 54 (38-126) U/L Total Protein 8.0 (6.3-8.2) g/dL Albumin 4.6 (3.5-5.0) g/dL Urine Color Colorless Urine Appearance Clear (Clear) Urine pH 7.0 (5.0-8.0) Ur Specific [place] 1.001 (1.001-1.035) Urine Protein Negative (Negative) Urine Glucose (UA) Negative (Negative) Urine Ketones Negative (Negative) Urine Blood Negative (Negative) Urine Nitrite Negative (Negative) Urine Bilirubin Negative (Negative) Urine Urobilinogen <2.0 (<2.0) mg/dL Ur Leukocyte Esterase Negative (Negative) Urine HCG, Qual (Not Detectd) 03/24/21 Range/Units 12:07 WBC (3.8-10.6) k/uL RBC (3.80-5.40) m/uL Hgb (11.4-16.0) gm/dL Hct (34.0-46.0) % MCV (80.0-100.0) fL MCH (25.0-35.0) pg MCHC (31.0-37.0) g/dL RDW (11.5-15.5) % Plt Count (150-450) k/uL MPV Neutrophils % % Lymphocytes % % Monocytes % % Eosinophils % % Basophils % % Neutrophils # (1.3-7.7) k/uL Lymphocytes # (1.0-4.8) k/uL Monocytes # (0-1.0) k/uL Eosinophils # (0-0.7) k/uL Basophils # (0-0.2) k/uL Hypochromasia Poikilocytosis Anisocytosis Microcytosis Sodium (137-145) mmol/L Potassium (3.5-5.1) mmol/L Chloride (98-107) mmol/L Carbon Dioxide (22-30) mmol/L Anion Gap mmol/L BUN (7-17) mg/dL Creatinine (0.52-1.04) mg/dL Est GFR (CKD-EPI)AfAm (>60 ml/min/1.73 sqM) Est GFR (CKD-EPI)NonAf (>60 ml/min/1.73 sqM) Glucose (74-99) mg/dL Calcium (8.4-10.2) mg/dL Total Bilirubin (0.2-1.3) mg/dL AST (14-36) U/L ALT (4-34) U/L Alkaline Phosphatase (38-126) U/L Total Protein (6.3-8.2) g/dL Albumin (3.5-5.0) g/dL Urine Color Urine Appearance (Clear) Urine pH (5.0-8.0) Ur Specific [place] (1.001-1.035) Urine Protein (Negative) Urine Glucose (UA) (Negative) Urine Ketones (Negative) Urine Blood (Negative) Urine Nitrite (Negative) Urine Bilirubin (Negative) Urine Urobilinogen (<2.0) mg/dL Ur Leukocyte Esterase (Negative) Urine HCG, Qual Not Detected (Not Detectd) Disposition Clinical Impression: Anemia Disposition: HOME SELF-CARE Condition: Stable Instructions (If sedation given, give patient instructions): Anemia (ED) Additional Instructions: Please return to the Emergency Department if symptoms worsen or any other concerns. Hemoglobin is stable today at 9.0. Follow-up with your primary care physician and/or GI doctor for further monitoring of blood levels. Is patient prescribed a controlled substance at d/c from ED?: No Referrals: Farhan Mix MD [Primary Care Provider] - 1-2 days Time of Disposition: 12:57
[2021-03-24 12:40] LABS: Anisocytosis Slight; Basophils # (A) 0.1 k/uL (0-0.2); Basophils % (A) 1 %; Eosinophils # (A) 0.2 k/uL (0-0.7); Eosinophils % (A) 2 %; HCT 29.8 % (34.0-46.0); Hypochromasia Marked; Lymphocytes # (A) 2.3 k/uL (1.0-4.8); Lymphocytes % (A) 25 %; MCH 19.7 pg (25.0-35.0); MCHC 30.3 g/dL (31.0-37.0); MCV 65.2 fL (80.0-100.0); Microcytosis Marked; Monocytes # (A) 0.9 k/uL (0-1.0); Monocytes % (A) 9 %; Neutrophils # (A) 5.5 k/uL (1.3-7.7); Neutrophils % (A) 59 %; Platelet Count 502 k/uL (150-450); Poikilocytosis Slight; RBC 4.56 m/uL (3.80-5.40); RDW 16.8 % (11.5-15.5); WBC 9.3 k/uL (3.8-10.6)
[2021-03-24 12:41] LABS: Appearance,Urine Clear (Clear); Bilirubin,Urine Negative (Negative); Blood,Urine Negative (Negative); Color,Urine Colorless; Glucose,Urine (UA) Negative (Negative); Ketones,Urine Negative (Negative); Leukocyte Esterase,Urine Negative (Negative); Nitrite,Urine Negative (Negative); Protein,Urine Negative (Negative); Specific Gravity,Urine 1.001 (1.001-1.035); Urobilinogen,Urine <2.0 mg/dL (<2.0)
[2021-03-24 12:51] LABS: ALT 18 U/L (4-34); AST 34 U/L (14-36); African American GFR (CKD) >90 (>60 ml/min/1.73 sqM); Albumin 4.6 g/dL (3.5-5.0); Alkaline Phosphatase 54 U/L (38-126); Anion Gap 8 mmol/L; Blood Urea Nitrogen 9 mg/dL (7-17); Calcium 9.4 mg/dL (8.4-10.2); Carbon Dioxide 26 mmol/L (22-30); Chloride 102 mmol/L (98-107); Glucose 89 mg/dL (74-99); Non-African American GFR(CKD) >90 (>60 ml/min/1.73 sqM); Potassium 4.6 mmol/L (3.5-5.1); Sodium 136 mmol/L (137-145); Total Bilirubin 0.4 mg/dL (0.2-1.3)
[2021-03-24 13:06] VITALS: BP 113/85; PULSE 79; RESP 20; TEMP 98
== END 2021-03-24 13:07 | disposition home or self-care (01) ==
LOC: EC 11:25
DX: D64.9 Anemia, unspecified (principal); K21.9 Gastro-esophageal reflux disease without esophagitis
CPT/HCPCS: 36415; 80053; 81003; 81025; 85025; 96360; 99284

== ENCOUNTER → 2021-09-11 | Outpatient (CLI) | payer BC ==
[2021-09-11 19:50] LABS: HCT 30.9 % (37.2-46.3); MCH 17.5 pg (27.0-32.0); MCHC 25.9 g/dL (32.0-37.0); MCV 67.8 fL (80.0-97.0); Mean Platelet Volume 10.3 fL (9.5-12.2); Platelet Count 597 X 10*3/uL (140-440); RBC 4.56 X 10*6/uL (4.10-5.20); RDW 21.1 % (11.5-14.5); WBC 9.21 X 10*3/uL (4.50-10.00)
[2021-09-12 01:09] LABS: Erythrocyte Sedimentation Rate 34 mm/Hr (0-20)
[2021-09-12 15:50] LABS: African American GFR (CKD) 110.2 (60.0-200.0); Albumin 4.7 g/dL (3.8-4.9); Albumin/Globulin Ratio 1.64 (1.60-3.17); Anion Gap 15.4 mmol/L (4.00-12.00); BUN/Creat Ratio 11.85 Ratio (12.00-20.00); Blood Urea Nitrogen 9.4 mg/dL (9.0-27.0); C Reactive Protein 1.2 mg/dL (0.00-0.80); Calcium 9.6 mg/dL (8.7-10.3); Carbon Dioxide 21.6 mmol/L (21.6-31.8); Globulin 2.8 g/dL (1.6-3.3); Non-African American GFR(CKD) 95.1 (60.0-200.0); Potassium 4.7 mmol/L (3.5-5.5); Total Bilirubin 0.2 mg/dL (0.30-1.20); Total Protein 7.5 g/dL (6.2-8.2)
== END | disposition home or self-care (01) ==
LOC: LABWHC1 13:35
PROVIDERS: ATTEND Physician Assistant
DX: K50.80 Crohn's disease of both small and large intestine without complications (principal)
CPT/HCPCS: 36415; 80053; 85027; 85652; 86140

== ENCOUNTER → 2021-09-11 | Outpatient (CLI) | payer BC ==
--- NOTE | 2021-09-12 11:47 | MM ---
Reason for exam: screening (asymptomatic). Baseline mammogram. History: Patient is nulliparous. Physical Findings: Nurse did not find any significant physical abnormalities on exam. MG Screening Mammo w CAD Bilateral CC and MLO view(s) were taken. There are scattered fibroglandular densities. There is no discrete abnormality. ASSESSMENT: Negative, BI-RAD 1 RECOMMENDATION: Routine screening mammogram of both breasts at age 42.
== END | disposition home or self-care (01) ==
LOC: RADMAMWWP 12:52
PROVIDERS: ATTEND Obstetrics & Gynecology
DX: Z12.31 Encounter for screening mammogram for malignant neoplasm of breast (principal)
CPT/HCPCS: 77067

== ENCOUNTER → 2022-05-15 | Outpatient (CLI) | payer BC ==
[2022-05-15 22:53] LABS: Basophils # (A) 0.13 X 10*3/uL (0.00-0.10); Basophils % (A) 1.2 %; Eosinophils # (A) 0.15 X 10*3/uL (0.04-0.35); Eosinophils % (A) 1.4 %; HCT 39.4 % (37.2-46.3); HGB 11.3 g/dL (12.0-15.0); Immature Grans, Automated 0.3 %; Lymphocytes # (A) 3.24 X 10*3/uL (0.90-5.00); Lymphocytes % (A) 30.5 %; MCH 22.2 pg (27.0-32.0); MCHC 28.7 g/dL (32.0-37.0); MCV 77.6 fL (80.0-97.0); Mean Platelet Volume 9.8 fL (9.5-12.2); Monocytes # (A) 1.13 X 10*3/uL (0.20-1.00); Monocytes % (A) 10.6 %; NRBC Per 100 WBC 0 /100 WBCS (0.0-0.0); Neutrophils # (A) 5.95 X 10*3/uL (1.80-7.70); Platelet Count 560 X 10*3/uL (140-440); RBC 5.08 X 10*6/uL (4.10-5.20); RDW 17.8 % (11.5-14.5); WBC 10.63 X 10*3/uL (4.50-10.00)
== END | disposition home or self-care (01) ==
LOC: LABPAT 15:16
PROVIDERS: ATTEND Obstetrics & Gynecology
DX: Z01.812 Encounter for preprocedural laboratory examination (principal); N92.1 Excessive and frequent menstruation with irregular cycle
CPT/HCPCS: 85025

== ENCOUNTER 2022-05-22 06:12 | Day surgery (SDC) | payer BC ==
[~2022-05-22 06:12] MED LIST changes: +DEXAMETHASONE SOD PHOSPHATE 4 MG/ML 1 ML VIAL IV ONE; +LIDOCAINE 1% (10MG/ML) FOR IV START INTRADERMA PRN; +ONDANSETRON 4 MG/2 ML VIAL IVP ONE; +Pre Op ABX Message 1 EACH MISC MISCELLANE ONE
[2022-05-22] MEDS ORDERED: SCOPOLAMINE 1 MG/72 HR PATCH TRANSDERM ONE (06:45)
[2022-05-22] MEDS ORDERED: METOCLOPRAMIDE 5 MG/ML 2 ML VIAL IVP PRN (07:00)
[2022-05-22] MEDS ORDERED: fentaNYL (PF) 50 MCG/ML 2 ML AMP ONE (07:24)
[2022-05-22] MEDS ORDERED: KETOROLAC 15 MG/ML 1 ML VIAL ONE (07:24)
[2022-05-22] MEDS ORDERED: MIDAZOLAM 2 MG/2 ML VIAL ONE (07:24)
[2022-05-22] MEDS ORDERED: LIDOCAINE 2% INJ 20 MG/ML (2 ML VIAL) ONE (07:24)
[2022-05-22] MEDS ORDERED: PROPOFOL 10 MG/ML 20 ML VIAL IV ONE (07:24)
[2022-05-22 07:59] VITALS: TEMP 97
[2022-05-22] MEDS: HYDROmorphone 0.5 MG/0.5 ML SYRINGE IVP PRN ×2 (08:03→08:21)
--- NOTE | 2022-05-22 08:05 | P.OP ---
Date of Procedure: 05/22/22 Preoperative Diagnosis: Menorrhagia, polymenorrhea, dysmenorrhea Postoperative Diagnosis: Same, abundant proliferative-type tissue noted in the endometrial cavity Procedure(s) Performed: Hysteroscopy, D&C ,NovaSure endometrial ablation Anesthesia: SANTOSH Surgeon: Antonette Carrero Estimated Blood Loss (ml): 20 IV fluids (ml): 400 Urine output (ml): 100 Pathology: none sent Condition: stable Disposition: PACU Operative Findings: A large amount of shaggy, proliferative appearing tissue in the endometrial cavity, no obvious polyps or fibroids. Description of Procedure: Patient is brought to the operating suite where a general anesthetic is administered without difficulty. She's placed in the dorsal lithotomy position. The appropriate timeout is performed to assure proper patient and procedural identification after prepping and draping of the perineal body. Urine hCG is negative. Examination under anesthesia reveals a small anteverted uterus, mobile, negative adnexa bilaterally. Bladder is drained for approximately 100 mL of clear yellow urine. Weighted speculum was placed into the vagina. Anterior lip of the cervix is grasped with an Allis clamp. Uterus sounds to a depth of 9 cm in the anteverted position. The cervix is gently and systematically dilated using Hanks dilators. The hysteroscope was introduced and fluid is infused. Careful inspection of the cavity reveals an abundant amount of proliferative-type, shaggy tissue. No obvious polyps or fibroids are noted. For this reason a medium sharp curette is used and this tissue is removed to allow more accurate application of the wand. The NovaSure wand is then introduced and seated properly. It is calibrated. Uterine width of 3.1 cm, length of 6.0 cm is chosen. The machine is properly enabled. For 60 seconds and a power of 102 W the procedure is carried out. When completed the wand is reduced and removed. Hysteroscope was once again introduced and the cavity is noted to be uniformly and thoroughly blanched. All sponge needle and enhancement counts are correct. Cervix is clean and dry upon completion of procedure. Total estimated blood loss 20 mL's. Patient is brought back to recovery room in very good condition with stable vital signs including a pulse of 55, blood pressure 128/63, 96% O2 saturation. Patient will follow-up with me in the office in 2 weeks. Toradol is given prior to leaving the operative suite.
[2022-05-22 09:20] VITALS: RESP 20
[2022-05-22 09:35] VITALS: BP 116/76; PULSE 68
[2022-05-22] MEDS ORDERED: ACETAMINOPHEN TAB 500 MG TAB PO ONE (10:20)
[2022-05-22] MEDS ORDERED: ACETAMINOPHEN TAB 500 MG TAB ONE (10:22)
== END 2022-05-22 10:50 | disposition home or self-care (01) ==
LOC: OR 06:12
PROVIDERS: ATTEND Obstetrics & Gynecology
DX: N92.1 Excessive and frequent menstruation with irregular cycle (principal); N92.0 Excessive and frequent menstruation with regular cycle
CPT/HCPCS: 58563; 81025; J2250; J1100; J2405; J3010; J1885; J2704; J1170; J2001

== ENCOUNTER → 2022-12-14 | Outpatient (CLI) | payer BC ==
[2022-12-14 23:07] LABS: Basophils # (A) 0.14 X 10*3/uL (0.00-0.10); Basophils % (A) 1.1 %; Eosinophils # (A) 0.21 X 10*3/uL (0.04-0.35); Eosinophils % (A) 1.7 %; HCT 42.1 % (37.2-46.3); HGB 12.7 g/dL (12.0-15.0); Immature Grans, Automated 0.2 %; Lymphocytes # (A) 2.73 X 10*3/uL (0.90-5.00); Lymphocytes % (A) 22.2 %; MCH 24.4 pg (27.0-32.0); MCHC 30.2 g/dL (32.0-37.0); Mean Platelet Volume 9.9 fL (9.5-12.2); Monocytes # (A) 1.26 X 10*3/uL (0.20-1.00); Monocytes % (A) 10.2 %; NRBC Per 100 WBC 0 /100 WBCS (0.0-0.0); Neutrophils # (A) 7.93 X 10*3/uL (1.80-7.70); Neutrophils % (A) 64.6 %; Platelet Count 555 X 10*3/uL (140-440); RDW 16.5 % (11.5-14.5)
[2022-12-14 23:20] LABS: Erythrocyte Sedimentation Rate 12 mm/Hr (0-20)
[2022-12-14 23:51] LABS: % Iron Saturation 3.51 (12.00-45.00); African American GFR (CKD) 109.4 (60.0-200.0); Albumin 4.6 g/dL (3.8-4.9); Albumin/Globulin Ratio 1.34 (1.60-3.17); Anion Gap 14.6 mmol/L (10.00-18.00); BUN/Creat Ratio 15.16 Ratio (12.00-20.00); Blood Urea Nitrogen 11.9 mg/dL (9.0-27.0); C Reactive Protein 1.8 mg/dL (0.00-0.80); Calcium 9.9 mg/dL (8.7-10.3); Carbon Dioxide 21.1 mmol/L (20.0-27.5); Globulin 3.4 g/dL (1.6-3.3); Non-African American GFR(CKD) 94.4 (60.0-200.0); Potassium 4.8 mmol/L (3.5-5.5); Total Bilirubin 0.2 mg/dL (0.30-1.20)
== END | disposition home or self-care (01) ==
LOC: LABWHC1 16:17
PROVIDERS: ATTEND Internal Medicine Gastroenterology
DX: D50.9 Iron deficiency anemia, unspecified (principal); K50.00 Crohn's disease of small intestine without complications
CPT/HCPCS: 36415; 80053; 83540; 83550; 85025; 85652; 86140

== ENCOUNTER → 2023-08-07 | Outpatient (CLI) | payer BC ==
[2023-08-07 16:40] LABS: Anisocytosis Slight; Basophils # (A) 0.1 k/uL (0-0.2); Basophils % (A) 1 %; Eosinophils # (A) 0.1 k/uL (0-0.7); Eosinophils % (A) 1 %; HCT 33.7 % (34.0-46.0); Hypochromasia Marked; Lymphocytes # (A) 2.6 k/uL (1.0-4.8); Lymphocytes % (A) 29 %; MCH 21.5 pg (25.0-35.0); MCHC 29.7 g/dL (31.0-37.0); MCV 72.3 fL (80.0-100.0); Mean Platelet Volume 7.7; Microcytosis Moderate; Monocytes # (A) 0.7 k/uL (0-1.0); Monocytes % (A) 8 %; Neutrophils # (A) 5.1 k/uL (1.3-7.7); Neutrophils % (A) 58 %; Platelet Count 545 k/uL (150-450); RBC 4.66 m/uL (3.80-5.40); RDW 17.8 % (11.5-15.5); WBC 8.9 k/uL (3.8-10.6)
[2023-08-07 17:47] LABS: Erythrocyte Sedimentation Rate 13 mm/hr (0-20)
[2023-08-08 02:59] LABS: % Iron Saturation 5.27 (12.00-45.00); ALT 23 U/L (8-44); AST 24 U/L (13-35); Albumin 4.7 d/dL (3.8-4.9); Albumin/Globulin Ratio 1.81 Ratio (1.60-3.17); Alkaline Phosphatase 52 U/L (41-126); BUN/Creat Ratio 12.33 Ratio (12.00-20.00); Blood Urea Nitrogen 11.1 mg/dL (9.0-27.0); Calcium 9.9 mg/dL (8.7-10.3); Carbon Dioxide 27.6 mmol/L (21.6-31.8); Chloride 104 mmol/L (96-109); Ferritin 4.7 ng/mL (10.0-291.0); Globulin 2.6 d/dL (1.6-3.3); Glucose 118 mg/dL (70-110); Iron 26 UG/DL (50-170); Potassium 5.3 mmol/L (3.5-5.5); Sodium 142 mmol/L (135-145); Total Bilirubin <0.2 mg/dL (0.3-1.2); Total Iron Binding Capacity 493 UG/DL (228-460); Total Protein 7.3 d/dL (6.2-8.2)
== END | disposition home or self-care (01) ==
LOC: LABWHC1 16:06
PROVIDERS: ATTEND Internal Medicine Gastroenterology
DX: K50.00 Crohn's disease of small intestine without complications (principal); D50.9 Iron deficiency anemia, unspecified
CPT/HCPCS: 36415; 80053; 82728; 83540; 83550; 85025; 85652; 86140

== ENCOUNTER → 2023-09-02 | Outpatient (CLI) | payer BC ==
[2023-09-02 21:29] LABS: Blood Urea Nitrogen 7.3 mg/dL (9.0-27.0); Carbon Dioxide 25.4 mmol/L (21.6-31.8); Chloride 103 mmol/L (96-109); Glucose 90 mg/dL (70-110); Potassium 4.5 mmol/L (3.5-5.5); Sodium 140 mmol/L (135-145)
[2023-09-02 21:45] LABS: Basophils # (A) 0.13 X 10*3/uL (0.00-0.10); Basophils % (A) 1.4 %; Eosinophils # (A) 0.18 X 10*3/uL (0.04-0.35); HCT 37.8 % (37.2-46.3); HGB 10.4 d/dL (12.0-15.0); Lymphocytes # (A) 2.91 X 10*3/uL (0.90-5.00); Lymphocytes % (A) 32.2 %; MCHC 27.5 d/dL (32.0-37.0); MCV 76.2 FL (80.0-97.0); Mean Platelet Volume 9.6 FL (9.5-12.2); Monocytes # (A) 0.83 X 10*3/uL (0.20-1.00); Monocytes % (A) 9.2 %; NRBC Per 100 WBC 0 X 10*3/uL (0.00-0.01); Neutrophils # (A) 4.98 X 10*3/uL (1.80-7.70); Platelet Count 612 X 10*3/uL (140-440); RBC 4.96 X 10*6/uL (4.10-5.20); RDW 20.4 % (11.5-14.5); WBC 9.05 X 10*3/uL (4.50-10.00)
== END | disposition home or self-care (01) ==
LOC: LABPAT 15:42
PROVIDERS: ATTEND Obstetrics & Gynecology
DX: Z01.812 Encounter for preprocedural laboratory examination (principal); N93.8 Other specified abnormal uterine and vaginal bleeding; N80.9 Endometriosis, unspecified; R10.2 Pelvic and perineal pain
CPT/HCPCS: 36415; 80051; 82565; 82947; 84520; 85025; 86850; 86900; 86901; 87086

== ENCOUNTER 2023-09-09 07:21 | Day surgery (SDC) | payer BC ==
[2023-09-02 18:08] VITALS: BMI 27.4
[2023-09-09] MEDS ORDERED: HYDROmorphone 0.5 MG/0.5 ML SYRINGE IVP PRN (07:38)
[2023-09-09] MEDS ORDERED: LIDOCAINE 1% (10MG/ML) FOR IV START INTRADERMA PRN (07:38)
[2023-09-09] MEDS ORDERED: DEXAMETHASONE SOD PHOSPHATE 4 MG/ML 1 ML VIAL IV ONE (07:38)
[2023-09-09] MEDS ORDERED: METOCLOPRAMIDE 5 MG/ML 2 ML VIAL IVP PRN (07:38)
[2023-09-09] MEDS ORDERED: ONDANSETRON 4 MG/2 ML VIAL IVP ONE ×2 (07:38→08:31)
[2023-09-09] MEDS: LACTATED RINGERS 1,000 ML IV SCH (08:10)
[2023-09-09] MEDS ORDERED: DEXAMETHASONE SOD PHOSPHATE 4 MG/ML 1 ML VIAL IVP ONE (08:30)
[2023-09-09] MEDS ORDERED: MIDAZOLAM 2 MG/2 ML VIAL IVP ONE (08:35)
[2023-09-09] MEDS ORDERED: fentaNYL (PF) 50 MCG/1 ML VIAL IVP ONE (08:36)
[2023-09-09] MEDS ORDERED: MIDAZOLAM 2 MG/2 ML VIAL ONE (08:54)
[2023-09-09] MEDS ORDERED: ROCURONIUM 10 MG/ML (5 ML VIAL) IV ONE (08:54)
[2023-09-09] MEDS ORDERED: PHENYLEPHRINE-0.9% NACL SYG 1,000 MCG/10 ML SYRINGE ONE (08:54)
[2023-09-09] MEDS ORDERED: LIDOCAINE 1% INJ 10MG/ML (20 ML MDV) ONE (08:54)
[2023-09-09] MEDS ORDERED: GLYCOPYRROLATE 0.2 MG/ML 2 ML VIAL ONE (08:54)
[2023-09-09] MEDS ORDERED: SUCCINYLCHOLINE CHLORIDE 200 MG/10 ML VIAL IV ONE (08:54)
[2023-09-09] MEDS ORDERED: NEOSTIGMINE 1 MG/ML 10 ML VIAL ONE (08:54)
[2023-09-09] MEDS ORDERED: MORPHINE SULFATE (PF) 0.3 MG/0.3 ML SYR ONE (08:54)
[2023-09-09] MEDS ORDERED: fentaNYL (PF) 50 MCG/ML 2 ML AMP ONE (08:54)
[2023-09-09] MEDS ORDERED: PROPOFOL 10 MG/ML 20 ML VIAL IV ONE (08:54)
[2023-09-09] MEDS ORDERED: diphenhydrAMINE 50 MG/ML 1 ML VIAL ONE (08:55)
[2023-09-09] MEDS ORDERED: diphenhydrAMINE 50 MG/ML 1 ML VIAL IVP ONE (08:56)
[2023-09-09] MEDS ORDERED: diphenhydrAMINE 50 MG/ML 1 ML VIAL IVP PRN (09:43)
[2023-09-09] MEDS ORDERED: NALOXONE 0.4 MG/ML 1 ML VIAL IV PRN (09:43)
[2023-09-09] MEDS ORDERED: KETOROLAC 15 MG/ML 1 ML VIAL IVP PRN (09:43)
--- NOTE | 2023-09-09 09:43 | P.ANPRN ---
Procedure Note - Anesthesia - Epidural/Spinal Spinal Time Out Performed: Yes Date of Procedure: 09/09/23 Procedure Start Time: 08:35 Procedure Stop Time: 08:45 Location of Patient: PreOp Indication: Acute Post-Operative Pain, Requested by Surgeon Sedation Type: Sedate with meaningful contact maintained Preparation: Sterile Prep Position: Sitting Needle Guage: 25 Blood Aspirated: No Pain Paresthesia on Injection Noted: No Events: Uneventful and Well Tolerated
[2023-09-09] MEDS ORDERED: LACTATED RINGERS 1,000 ML IV ONE (09:46)
[2023-09-09] MEDS ORDERED: BUPIVACAINE (PF) 0.25% 30 ML VIAL SQ ONE ×2 (09:49→10:28)
--- NOTE | 2023-09-09 10:52 | P.OP ---
Date of Procedure: 09/09/23 Preoperative Diagnosis: 1. Abnormal Uterine Bleeding 2. Endometriosis 3. Failed Endometrial Ablation 4. Dysmenorrhea Postoperative Diagnosis: 1. Abnormal Uterine Bleeding 2. Endometriosis 3. Failed Endometrial Ablation 4. Dysmenorrhea 5. Umilical Hernia 6. Pedunculated Fundal Leiomyoma Procedure(s) Performed: Robotic Assisted Total Laparoscopic Hysterectomy, Right Salpingo-Oophorectomy, Cauterization of Endometriosis, Lysis of Adhesions (10 minutes) and Cystoscopy Implants: None Anesthesia: SANTOSH Surgeon: Ashleigh Mendez Senior Cytogenetics Laboratory Director #1: Cara Espana Estimated Blood Loss (ml): 25 IV fluids (ml): 700 Urine output (ml): 150 Pathology: other (uterus, cervix, right fallopian tube, right ovary) Condition: stable Disposition: floor Indications for Procedure: This is a 42 year old female with AUB and dysmenorrhea that did not improve after endometrial ablation. She also has a history of endometriosis. The risks, benefits, and alternatives to RATLH, BS, right oophrectomy, and cystoscopy are reviewed with the patient including risk of bleeding, infection, damage to surrounding structures including bladder/bowel/ureters, and laparotomy. The patient understands these risks and desire to proceed with surgery as boarded. Operative Findings: Upon entry, a large umbilical hernia is noted. There are some minor adhesions from the colon to the left pelvic side wall. A 2 centimeter pedunculated fundal fibroid is noted and on the right ovary there is a 2-3 centimeter cyst consistent with endometrioma. There are endometrial implants in the posterior cul-de-sac. Description of Procedure: Prior to the beginning of the procedure, the team paused to verify the patients identity, the procedure to be performed (in accordance with the consent,) and the correct side/site. The patient was positioned appropriately. All relevant images and results were properly labeled and displayed. We addressed antibiotic prophylaxis and fluids for irrigation as applicable to this patient. Any safety precautions were addressed. The patient was taken to the operating room where general anesthesia was induced without difficulty. She was then [facility] Positioning included placing her arms at her sides. After the patient was placed in what was felt to be a neurologically safe position, deep Trendelenburg position was tested prior to the operative procedure, to ensure that she would not move on the operating table. The patient was then prepped and draped in the normal sterile fashion for a combined abdominovaginal surgery. A Jesus catheter was placed in the bladder for continuous drainage. Uterus was sounded to 10 cm. V-Care manipulator was placed in the uterus for manipulation. Attention was then placed to the abdomen. The normal length Veress needle was introduced into the abdominal cavity while tenting the abdominal wall. Low pressure was noted confirming appropriate placement. The abdomen was then insufflated to 15mmHg for the remainder of the case. The Veress needle was removed, and an 8 mm port was placed at the umbilical site under direct laparsc opic visualization and there was no evidence of injury from the trocar placement. Visualization of the intraabdominal cavity showed normal pelvic anatomy. There were anterior abdominal wall adhesions and an umbilical hernia. The port sites for the remainder of the case were then measured out and placed under direct visualization. On the left side, one 8 mm robotic assist port and one 10 mm assist port were placed. On the right side, one 8 mm robotic port was placed. The tarpipei robot was then brought to the operative field in a lateral docking style to the left of the patient and the robot was docked to the ports. All robotic instruments were brought into the pelvis under direct visualization with monopolar scissors in arm #3 and vessel sealer in arm #1. A portion of the anterior abdominal wall adhesions were cauterized and cut with the monopolar scissors for better visualization of the pelvis and mobilization of the instruments. Bilateral ureters were visualized prior to starting the surgery. The right uteroovarian ligament was cauterized and cut. The right round ligament was cauterized and cut. Broad ligament was opened and bladder flap created. The left round ligament was then cauterized and cut. The peritoneum of the bilateral broad ligaments was then taken down and monopolar cautery used to skeletonize the uterine arteries bilaterally. During the course of this dissection, the anterior leaf of the broad ligament was also taken down over the anterior aspect of the uterus and cervix to create a bladder flap. The bladder was then dissected off the cervix and upper vagina with the monopolar scissors and gentle blunt dissection. The bilateral uterine arteries were then cauterized and divided at the level of the internal cervical os. Endometrial implants along the posterior cul-de-sac peritoneum were cauterized. The monopolar cautery was used to incise the vaginal cuff. The uterus, along with the cervix was removed vaginally. Cuff was closed in with 0-Stratifix sutures. Excellent hemostasis was noted at this time. A 70 degree cystoscopy was performed which confirmed no suture placement within the bladder, no trauma to the bladder. Good efflux was noted from both ureteric orifices. The robot was undocked from the trocars and brought out of the operative field. The remainder of the ports were removed, and the gas was allowed to escape. All skin incisions were infiltrated with lidocaine and closed with 4-0 Monocryl and dermabond. Hemostasis was noted to be excellent throughout, and final sponge, instrument, and needle count was noted to be correct. The patient was moved back to the preoperative holding area in stable condition having tolerated the procedure well.
[2023-09-09] MEDS ORDERED: SIMETHICONE 80 MG CHEWABLE PO PRN (10:53)
[2023-09-09] MEDS ORDERED: IBUPROFEN 600 MG TAB PO PRN (10:53)
[2023-09-09] MEDS: KETOROLAC 15 MG/ML 1 ML VIAL IVP PRN ×2 (13:16→19:59)
[2023-09-10] MEDS: KETOROLAC 15 MG/ML 1 ML VIAL IVP PRN (02:27)
--- NOTE | 2023-09-10 07:10 | P.PN ---
Progress Note - Text Progress Note Date: 09/10/23 (369) Postop day 1 Subjective: Status Post robotic hysterectomy with Duramorph. Patient seen and examined. Slight nausea yesterday. VAS 3 out of 10. No current nausea vomiting or pruritus. Denies fever. Gross lower extremity strength intact. Without apparent anesthetic complications. Objective: Vital signs reviewed Heart: Regular Rate Lungs: Good chest excursion Abdomen: Appears nondistended Assessment: Status post robotic hysterectomy with Duramorph postop day 1 Plan: Continue current care with your medical management. Anticipated and the Duramorph section around surgery time today. You may see increased pain needs around this time.
[2023-09-10 07:15] LABS: Anisocytosis Moderate; Basophils % (A) 0 %; Eosinophils # (A) 0.1 k/uL (0-0.7); Eosinophils % (A) 1 %; HCT 31.5 % (34.0-46.0); HGB 9.5 gm/dL (11.4-16.0); Hypochromasia Marked; Lymphocytes # (A) 2.3 k/uL (1.0-4.8); Lymphocytes % (A) 24 %; MCH 23.2 pg (25.0-35.0); MCHC 30.2 g/dL (31.0-37.0); MCV 76.6 fL (80.0-100.0); Microcytosis Moderate; Monocytes # (A) 0.9 k/uL (0-1.0); Monocytes % (A) 9 %; Neutrophils # (A) 6.1 k/uL (1.3-7.7); Neutrophils % (A) 63 %; Platelet Count 426 k/uL (150-450); RBC 4.11 m/uL (3.80-5.40); RDW 20.9 % (11.5-15.5); WBC 9.7 k/uL (3.8-10.6)
[2023-09-10] MEDS ORDERED: ACETAMINOPHEN TAB 325 MG TAB PO PRN (10:54)
[2023-09-10] MEDS: LACTATED RINGERS 1,000 ML IV SCH (11:31)
[2023-09-10 12:50] VITALS: BP 111/67; PULSE 98; RESP 15; TEMP 98
== END 2023-09-10 13:10 | disposition home or self-care (01) ==
LOC: OR 07:21 → 4FBP 10:31 → OR 09-10 13:10
PROVIDERS: ATTEND Obstetrics & Gynecology
DX: D25.1 Intramural leiomyoma of uterus (principal); N80.03 Adenomyosis of the uterus; N94.6 Dysmenorrhea, unspecified; N72 Inflammatory disease of cervix uteri; G89.29 Other chronic pain; Z98.890 Other specified postprocedural states; Z83.3 Family history of diabetes mellitus; Z79.899 Other long term (current) drug therapy
CPT/HCPCS: 81025; 86900; 86901; 85025; 86850; 88307; 58571; 64999; J2250; J1200; J1100; J2765; J0690; J2405; J1885 ×2; J3010; J0665

== ENCOUNTER → 2023-10-09 | Outpatient (CLI) | payer BC ==
[2023-10-10 02:50] LABS: HCT 42.2 % (37.2-46.3); HGB 12.4 g/dL (12.0-15.0); MCH 23.7 pg (27.0-32.0); MCHC 29.4 g/dL (32.0-37.0); MCV 80.5 FL (80.0-97.0); Mean Platelet Volume 9.6 FL (9.5-12.2); NRBC Per 100 WBC 0 X 10*3/uL (0.00-0.01); Platelet Count 506 X 10*3/uL (140-440); RBC 5.24 X 10*6/uL (4.10-5.20); RDW 24.4 % (11.5-14.5); WBC 7.41 X 10*3/uL (4.50-10.00)
[2023-10-10 04:32] LABS: Basophils # (A) 0.12 X 10*3/uL (0.00-0.10); Basophils % (A) 1.6 %; Eosinophils # (A) 0.31 X 10*3/uL (0.04-0.35); Eosinophils % (A) 4.2 %; Lymphocytes # (A) 2.84 X 10*3/uL (0.90-5.00); Lymphocytes % (A) 38.3 %; Monocytes # (A) 0.83 X 10*3/uL (0.20-1.00); Monocytes % (A) 11.2 %; Neutrophils % (A) 44.6 %
== END | disposition home or self-care (01) ==
LOC: LABWHC1 14:46
PROVIDERS: ATTEND Internal Medicine Gastroenterology
DX: D64.9 Anemia, unspecified (principal)
CPT/HCPCS: 36415; 85025

== ENCOUNTER → 2023-10-22 | Outpatient (CLI) | payer BC ==
[2023-10-23 02:31] LABS: Basophils % (A) 1.3 %; Eosinophils # (A) 0.25 X 10*3/uL (0.04-0.35); Eosinophils % (A) 3.2 %; HCT 42.8 % (37.2-46.3); Lymphocytes # (A) 2.59 X 10*3/uL (0.90-5.00); Lymphocytes % (A) 33.5 %; MCHC 30.4 g/dL (32.0-37.0); MCV 82.5 FL (80.0-97.0); Mean Platelet Volume 9.8 FL (9.5-12.2); Monocytes # (A) 0.83 X 10*3/uL (0.20-1.00); Monocytes % (A) 10.7 %; NRBC Per 100 WBC 0 X 10*3/uL (0.00-0.01); Neutrophils # (A) 3.96 X 10*3/uL (1.80-7.70); Neutrophils % (A) 51.2 %; Platelet Count 418 X 10*3/uL (140-440); RBC 5.19 X 10*6/uL (4.10-5.20); RDW 23.6 % (11.5-14.5); WBC 7.74 X 10*3/uL (4.50-10.00)
[2023-10-23 02:33] LABS: % Iron Saturation 9.11 (12.00-45.00); ALT 14 U/L (8-44); AST 18 U/L (13-35); Albumin 4.7 g/dL (3.8-4.9); Albumin/Globulin Ratio 1.68 Ratio (1.60-3.17); Alkaline Phosphatase 56 U/L (41-126); BUN/Creat Ratio 12.88 Ratio (12.00-20.00); Blood Urea Nitrogen 10.3 mg/dL (9.0-27.0); Calcium 10.2 mg/dL (8.7-10.3); Carbon Dioxide 24.3 mmol/L (21.6-31.8); Chloride 102 mmol/L (96-109); Globulin 2.8 g/dL (1.6-3.3); Glucose 83 mg/dL (70-110); Iron 37 UG/DL (50-170); Potassium 4.8 mmol/L (3.5-5.5); Sodium 139 mmol/L (135-145); Total Bilirubin <0.2 mg/dL (0.3-1.2); Total Iron Binding Capacity 406 UG/DL (228-460); Total Protein 7.5 g/dL (6.2-8.2)
[2023-10-23 04:18] LABS: Erythrocyte Sedimentation Rate 20 mm/Hr (0-20)
== END | disposition home or self-care (01) ==
LOC: LABWHC1 15:08
PROVIDERS: ATTEND Internal Medicine Gastroenterology
DX: D50.9 Iron deficiency anemia, unspecified (principal); K50.00 Crohn's disease of small intestine without complications
CPT/HCPCS: 36415; 80053; 82728; 83540; 83550; 85025; 85652; 86140

== ENCOUNTER → 2024-02-14 | Outpatient (CLI) | payer BC ==
[2024-02-15 04:31] LABS: % Iron Saturation 16.95 (12.00-45.00); ALT 14 U/L (8-44); AST 17 U/L (13-35); Albumin 4.7 g/dL (3.8-4.9); Albumin/Globulin Ratio 1.62 Ratio (1.60-3.17); Alkaline Phosphatase 54 U/L (41-126); BUN/Creat Ratio 12.89 Ratio (12.00-20.00); Blood Urea Nitrogen 11.6 mg/dL (9.0-27.0); Calcium 10.1 mg/dL (8.7-10.3); Carbon Dioxide 27.3 mmol/L (21.6-31.8); Chloride 101 mmol/L (96-109); Ferritin 18.5 ng/mL (10.0-291.0); Globulin 2.9 g/dL (1.6-3.3); Glucose 111 mg/dL (70-110); Iron 70 UG/DL (50-170); Potassium 4.4 mmol/L (3.5-5.5); Sodium 141 mmol/L (135-145); Total Bilirubin 0.3 mg/dL (0.3-1.2); Total Iron Binding Capacity 413 UG/DL (228-460); Total Protein 7.6 g/dL (6.2-8.2)
[2024-02-15 05:05] LABS: Basophils # (A) 0.09 X 10*3/uL (0.00-0.10); Basophils % (A) 1.2 %; Eosinophils # (A) 0.11 X 10*3/uL (0.04-0.35); Eosinophils % (A) 1.5 %; HCT 46.6 % (37.2-46.3); HGB 14.8 g/dL (12.0-15.0); Lymphocytes # (A) 2.56 X 10*3/uL (0.90-5.00); Lymphocytes % (A) 34.4 %; MCHC 31.8 g/dL (32.0-37.0); MCV 91.2 FL (80.0-97.0); Monocytes # (A) 0.66 X 10*3/uL (0.20-1.00); Monocytes % (A) 8.9 %; NRBC Per 100 WBC 0 X 10*3/uL (0.00-0.01); Neutrophils # (A) 4.02 X 10*3/uL (1.80-7.70); Neutrophils % (A) 53.9 %; Platelet Count 438 X 10*3/uL (140-440); RBC 5.11 X 10*6/uL (4.10-5.20); RDW 14.6 % (11.5-14.5); WBC 7.45 X 10*3/uL (4.50-10.00)
[2024-02-15 05:24] LABS: Erythrocyte Sedimentation Rate 19 mm/Hr (0-20)
== END | disposition home or self-care (01) ==
LOC: LABWHC1 15:02
PROVIDERS: ATTEND Internal Medicine Gastroenterology
DX: K50.00 Crohn's disease of small intestine without complications (principal); D50.9 Iron deficiency anemia, unspecified
CPT/HCPCS: 36415; 80053; 82728; 83540; 83550; 85025; 85652; 86140

== ENCOUNTER → 2024-08-14 | Outpatient (CLI) | payer BC ==
[2024-08-14 19:06] LABS: Basophils # (A) 0.12 X 10*3/uL (0.00-0.10); Basophils % (A) 1.3 %; Eosinophils # (A) 0.16 X 10*3/uL (0.04-0.35); Eosinophils % (A) 1.8 %; HCT 47.1 % (37.2-46.3); HGB 15.5 g/dL (12.0-15.0); Lymphocytes # (A) 2.66 X 10*3/uL (0.90-5.00); Lymphocytes % (A) 29.7 %; MCH 30.2 pg (27.0-32.0); MCHC 32.9 g/dL (32.0-37.0); MCV 91.8 FL (80.0-97.0); Mean Platelet Volume 9.1 FL (9.5-12.2); Monocytes # (A) 0.89 X 10*3/uL (0.20-1.00); Monocytes % (A) 9.9 %; NRBC Per 100 WBC 0 X 10*3/uL (0.00-0.01); Neutrophils # (A) 5.09 X 10*3/uL (1.80-7.70); Platelet Count 457 X 10*3/uL (140-440); RBC 5.13 X 10*6/uL (4.10-5.20); RDW 13.2 % (11.5-14.5); WBC 8.95 X 10*3/uL (4.50-10.00)
[2024-08-14 21:10] LABS: % Iron Saturation 20.94 (12.00-45.00); ALT 12 U/L (8-44); AST 17 U/L (13-35); Albumin 4.6 g/dL (3.8-4.9); Albumin/Globulin Ratio 1.53 Ratio (1.60-3.17); Alkaline Phosphatase 59 U/L (41-126); BUN/Creat Ratio 15.25 Ratio (12.00-20.00); Blood Urea Nitrogen 12.2 mg/dL (9.0-27.0); Carbon Dioxide 26.4 mmol/L (21.6-31.8); Chloride 103 mmol/L (96-109); Glucose 91 mg/dL (70-110); Iron 85 UG/DL (50-170); Potassium 4.8 mmol/L (3.5-5.5); Sodium 143 mmol/L (135-145); Total Bilirubin 0.3 mg/dL (0.3-1.2); Total Iron Binding Capacity 406 UG/DL (228-460); Total Protein 7.6 g/dL (6.2-8.2)
[2024-08-14 21:11] LABS: Ferritin 22.8 ng/mL (10.0-291.0)
== END ==
LOC: LABWHC1 15:36
PROVIDERS: ATTEND Internal Medicine Gastroenterology
DX: K50.00 Crohn's disease of small intestine without complications (principal); D50.9 Iron deficiency anemia, unspecified
CPT/HCPCS: 36415; 80053; 82728; 83540; 83550; 85025

== ENCOUNTER → 2024-08-19 | Outpatient (CLI) | payer BC ==
--- NOTE | 2024-08-19 08:50 | US ---
EXAMINATION TYPE: US abdomen complete DATE OF EXAM: 08/19/2024 COMPARISON: 03/18/21 CLINICAL INDICATION: Female, 43 years old with history of R10.9 Unspecified abdominal pain; lt subcos donnell pain x a few months, Hx GB stone TECHNIQUE: Multiple sonographic images of the abdomen are obtained. FINDINGS: EXAM MEASUREMENTS: Liver Length: 13.6 cm. Gallbladder Wall: 0.2 cm. CBD: 0.4 cm. Spleen: 9.7 cm. Right Kidney: 11.6 x 4.0 x 5.7 cm Left Kidney: 11.1 x 5.4 x 4.7 cm Pancreas: Tail obscured by overlying bowel gas Liver: wnl Gallbladder: One large stone measuring up to 1.3 cm. Evidence for sonographic Harrington's sign: No CBD: wnl Spleen: Increased attenuation Right Kidney: wnl Left Kidney: wnl Upper IVC: wnl Abd Aorta: wnl exam limited by bowel gas and rib shadows The liver is homogenous with increased echotexture. The intrahepatic portion of the IVC and proximal abdominal aorta are within normal limits. There is evidence of cholelithiasis. Common bile duct is unremarkable. The visualized portions of the pancreas are homogenous. The spleen is unremarkable. Kidneys are symmetric and free of hydronephrosis. No renal lesions are seen. IMPRESSION: 1. No acute process. 2. Hepatic steatosis 3. Cholelithiasis [facility] Eva Souza, , 08/19/2024 8:48 AM
== END | disposition home or self-care (01) ==
LOC: RADUSWWP 07:57
PROVIDERS: ATTEND Internal Medicine Gastroenterology
DX: R10.9 Unspecified abdominal pain
CPT/HCPCS: 76700

== ENCOUNTER → 2024-09-30 | Outpatient (CLI) | payer BC ==
[2024-10-01 02:31] LABS: Basophils # (A) 0.13 X 10*3/uL (0.00-0.10); Basophils % (A) 1.5 %; Eosinophils # (A) 0.17 X 10*3/uL (0.04-0.35); Eosinophils % (A) 1.9 %; HCT 47.3 % (37.2-46.3); HGB 15.1 g/dL (12.0-15.0); Lymphocytes # (A) 2.75 X 10*3/uL (0.90-5.00); Lymphocytes % (A) 31.1 %; MCH 29.9 pg (27.0-32.0); MCHC 31.9 g/dL (32.0-37.0); MCV 93.7 FL (80.0-97.0); Mean Platelet Volume 9.4 FL (9.5-12.2); Monocytes # (A) 0.89 X 10*3/uL (0.20-1.00); Monocytes % (A) 10.1 %; NRBC Per 100 WBC 0 X 10*3/uL (0.00-0.01); Neutrophils # (A) 4.88 X 10*3/uL (1.80-7.70); Neutrophils % (A) 55.2 %; Platelet Count 464 X 10*3/uL (140-440); RBC 5.05 X 10*6/uL (4.10-5.20); RDW 13.2 % (11.5-14.5); WBC 8.84 X 10*3/uL (4.50-10.00)
[2024-10-01 03:07] LABS: ALT 12 U/L (8-44); AST 16 U/L (13-35); Albumin 4.6 g/dL (3.8-4.9); Alkaline Phosphatase 55 U/L (41-126); BUN/Creat Ratio 18.88 Ratio (12.00-20.00); Blood Urea Nitrogen 15.1 mg/dL (9.0-27.0); Calcium 10.1 mg/dL (8.7-10.3); Carbon Dioxide 28.3 mmol/L (21.6-31.8); Chloride 102 mmol/L (96-109); Globulin 2.7 g/dL (1.6-3.3); Glucose 101 mg/dL (70-110); Potassium 5.1 mmol/L (3.5-5.5); Sodium 142 mmol/L (135-145); Total Bilirubin 0.2 mg/dL (0.3-1.2); Total Protein 7.3 g/dL (6.2-8.2)
== END | disposition home or self-care (01) ==
LOC: LABWHC1 15:31
PROVIDERS: ATTEND Internal Medicine Gastroenterology
DX: K50.00 Crohn's disease of small intestine without complications (principal)
CPT/HCPCS: 36415; 80053; 85025

== ENCOUNTER → 2025-02-09 | Outpatient (CLI) | payer BC ==
[2025-02-09 18:50] LABS: Basophils % (A) 1.4 %; Eosinophils # (A) 0.19 X 10*3/uL (0.04-0.35); Eosinophils % (A) 2.6 %; HCT 45.2 % (37.2-46.3); HGB 14.9 g/dL (12.0-15.0); Lymphocytes # (A) 1.97 X 10*3/uL (0.90-5.00); MCH 29.6 pg (27.0-32.0); MCV 89.9 FL (80.0-97.0); Monocytes # (A) 0.73 X 10*3/uL (0.20-1.00); NRBC Per 100 WBC 0 X 10*3/uL (0.00-0.01); Neutrophils # (A) 4.29 X 10*3/uL (1.80-7.70); Neutrophils % (A) 58.7 %; Platelet Count 435 X 10*3/uL (140-440); RBC 5.03 X 10*6/uL (4.10-5.20); RDW 13.1 % (11.5-14.5)
[2025-02-09 19:22] LABS: ALT 14 U/L (8-44); AST 18 U/L (13-35); Albumin 4.5 g/dL (3.8-4.9); Albumin/Globulin Ratio 1.55 Ratio (1.60-3.17); Alkaline Phosphatase 63 U/L (41-126); BUN/Creat Ratio 12.86 Ratio (12.00-20.00); Calcium 9.3 mg/dL (8.7-10.3); Carbon Dioxide 26.5 mmol/L (21.6-31.8); Chloride 103 mmol/L (96-109); Globulin 2.9 g/dL (1.6-3.3); Glucose 93 mg/dL (70-110); Potassium 4.4 mmol/L (3.5-5.5); Sodium 141 mmol/L (135-145); Total Bilirubin <0.2 mg/dL (0.3-1.2); Total Protein 7.4 g/dL (6.2-8.2)
[2025-02-09 19:55] LABS: Erythrocyte Sedimentation Rate 15 mm/Hr (0-20)
== END | disposition home or self-care (01) ==
LOC: LABWHC1 15:41
PROVIDERS: ATTEND Internal Medicine Gastroenterology
DX: K50.00 Crohn's disease of small intestine without complications (principal)
CPT/HCPCS: 36415; 80053; 83993; 85025; 85652; 86140

== ENCOUNTER → 2025-03-18 | Outpatient (CLI) | payer BC ==
--- NOTE | 2025-03-19 07:33 | MM ---
Reason for Exam: Screening (asymptomatic). Last mammogram was performed 3 year(s) and 6 month(s) ago. Patient History: Menarche at age 15. Patient has no children. Left ovary removed at age 30. Right ovary removed at age 43. Hysterectomy at age 43. Postmenopausal. Currently using Estrogen and Progesterone, starting at age 42. Risk Values: Iris 5 year model risk: 0.7%. NCI Lifetime model risk: 10.9%. Prior Study Comparison: 09/11/2021 Bilateral Screening Mammogram, [facility]. Tissue Density: The breasts are heterogeneously dense, which may obscure small masses. Findings: Analyzed By CAD. There is no suspicious group of microcalcifications or new suspicious mass in either breast. Overall Assessment: Benign, BI-RAD 2 Management: Screening Mammogram of both breasts in 1 year. . Patient should continue monthly self-breast exams. A clinical breast exam by your physician is recommended on an annual basis. This exam should not preclude additional follow-up of suspicious palpable abnormalities. Note on Iris scores and lifetime risk: 1. A Iris score greater than 3% is considered moderate risk. If this is the case, consider specialist referral to assess eligibility for a risk reducing agent. 2. If overall lifetime risk for the development of breast cancer is 20% or higher, the patient may qualify for future screening with alternating mammogram and breast MRI. [facility], , 03/19/2025 7:30 AM. Electronically signed and approved by: Jose E Toribio M.D. Radiologis
== END | disposition home or self-care (01) ==
LOC: RADMAMWWP 16:21
PROVIDERS: ATTEND Obstetrics & Gynecology
DX: Z12.31 Encounter for screening mammogram for malignant neoplasm of breast (principal); R92.333 Mammographic heterogeneous density, bilateral breasts; Z78.0 Asymptomatic menopausal state
CPT/HCPCS: 77067

== ENCOUNTER 2025-04-09 06:20 | Day surgery (SDC) | payer BC ==
[2025-04-07 10:48] VITALS: BMI 26.6
[2025-04-09 06:56] VITALS: RESP 16; TEMP 96.7
[2025-04-09] MEDS: LACTATED RINGERS 1,000 ML IV SCH (07:05)
[2025-04-09] MEDS ORDERED: LIDOCAINE 1% INJ 10MG/ML (20 ML MDV) ONE (07:22)
[2025-04-09] MEDS ORDERED: PROPOFOL 10 MG/ML 20 ML VIAL IV ONE (07:22)
--- NOTE | 2025-04-09 07:43 | P.PCN ---
Date of Procedure: 04/09/25 Procedure(s) Performed: Brief history: Patient is a pleasant 44-year-old white female with history of Crohn's ileitis diagnosed in 2019 scheduled for an elective upper endoscopy as well as colonoscopy as a part of evaluation of iron deficiency anemia. She was maintained on Humira injections from but was stopped because of side effects. Recently had a flareup and is being treated with budesonide 9 mg daily. She denies any abdominal pain. No rectal bleeding or melena. Usually has 3-4 bowel movements daily Procedure performed: Esophagogastroduodenoscopy with biopsy Colonoscopy with biopsy Preoperative diagnosis: Iron deficiency anemia History of Crohn's ileitis Anesthesia: MAC Procedure: After informed consent was obtained from the patient was brought into the endoscopy unit and IV sedation was administered by anesthesia under continuous monitoring. Initially upper endoscopy was done. The Olympus GF 160 video endoscope was inserted inserted into the mouth and esophagus intubated without any difficulty and was gradually advanced into the stomach and duodenum and carefully examined. The bulb and second part of the duodenum appeared normal. Biopsies were done from the duodenum to rule celiac disease. The scope was then withdrawn into the stomach adequately insufflated with air and upon careful examination the antrum had mild gastritis and biopsies were done from this area. Mucosa of the d body, cardia and fundus appeared normal. The scope was then withdrawn into the esophagus. The GE junction was located at 40 cm to the incisors. It appeared regular with no erythema erosions or ulcerations. Rest of the esophagus appeared normal. Patient tolerated the procedure well. At this time the patient continued to remain sedation. Initial digital rectal examination was normal. Olympus CF 160 video colonoscope was then inserted into the rectum and gradually advanced to the cecum without any difficulty. Careful examination was performed as the scope was gradually being withdrawn. The prep was excellent. 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 There was some scattered pseudopolyps noted on the ileocecal valve and these were biopsied. The cecum, ascending colon, transverse colon, descending colon, sigmoid colon and rectum appeared normal. Retroflexion was performed in the rectum and no lesions were noted. Patient tolerated the procedure well. Impression: 1. Upper endoscopy revealed mild antral gastritis but no evidence of esophagitis or peptic ulcer disease 2. 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 Terminal ileum could not be intubated. Colon appeared normal. Recommendations: Findings of this examination were discussed with the patient as well as her family. She was advised to follow-up with the biopsy results. She will be seen in the office in 2 weeks.
[2025-04-09 08:06] VITALS: BP 109/66; PULSE 60
== END 2025-04-09 08:31 | disposition home or self-care (01) ==
LOC: ORWHC2ENDO 06:20
PROVIDERS: ATTEND Internal Medicine Gastroenterology
DX: D50.9 Iron deficiency anemia, unspecified (principal); K50.00 Crohn's disease of small intestine without complications; K29.50 Unspecified chronic gastritis without bleeding; K29.80 Duodenitis without bleeding; D72.820 Lymphocytosis (symptomatic); Z79.899 Other long term (current) drug therapy; Z90.710 Acquired absence of both cervix and uterus
CPT/HCPCS: 88305; 88342; 45380; 43239; J2003; J2704

== ENCOUNTER → 2025-04-15 | Outpatient (CLI) | payer BC ==
[2025-04-16 02:17] LABS: Basophils # (A) 0.09 X 10*3/uL (0.00-0.10); Basophils % (A) 1.1 %; Eosinophils # (A) 0.16 X 10*3/uL (0.04-0.35); HCT 44.6 % (37.2-46.3); HGB 13.8 g/dL (12.0-15.0); Lymphocytes # (A) 2.01 X 10*3/uL (0.90-5.00); Lymphocytes % (A) 24.7 %; MCH 28.9 pg (27.0-32.0); MCHC 30.9 g/dL (32.0-37.0); MCV 93.3 FL (80.0-97.0); Mean Platelet Volume 9.4 FL (9.5-12.2); Monocytes % (A) 9.8 %; NRBC Per 100 WBC 0 X 10*3/uL (0.00-0.01); Neutrophils # (A) 5.06 X 10*3/uL (1.80-7.70); Neutrophils % (A) 62.2 %; Platelet Count 470 X 10*3/uL (140-440); RBC 4.78 X 10*6/uL (4.10-5.20); RDW 13.3 % (11.5-14.5); WBC 8.14 X 10*3/uL (4.50-10.00)
[2025-04-16 02:31] LABS: Erythrocyte Sedimentation Rate 25 mm/Hr (0-20)
[2025-04-16 02:55] LABS: ALT 15 U/L (8-44); AST 16 U/L (13-35); Albumin 4.4 g/dL (3.8-4.9); Albumin/Globulin Ratio 1.42 Ratio (1.60-3.17); Alkaline Phosphatase 59 U/L (41-126); BUN/Creat Ratio 19.29 Ratio (12.00-20.00); Blood Urea Nitrogen 13.5 mg/dL (9.0-27.0); Calcium 9.6 mg/dL (8.7-10.3); Carbon Dioxide 27.6 mmol/L (21.6-31.8); Chloride 102 mmol/L (96-109); Globulin 3.1 g/dL (1.6-3.3); Glucose 97 mg/dL (70-110); Potassium 4.7 mmol/L (3.5-5.5); Sodium 140 mmol/L (135-145); Total Bilirubin 0.2 mg/dL (0.3-1.2); Total Protein 7.5 g/dL (6.2-8.2)
[2025-04-16 03:16] LABS: Hepatitis B Surface Antigen Nonreactive (Nonreactive); Hepatitis C IgG Antibody Nonreactive (Nonreactive)
[2025-04-16 05:11] LABS: Gliadin AB IgA, Deaminated Negative (Negative); Gliadin AB IgA, Unit 0.6 U/mL; Gliadin AB IgG, Deaminated Negative (Negative); Gliadin AB IgG, Unit <0.4 U/mL
== END | disposition home or self-care (01) ==
LOC: LABWHC1 15:34
PROVIDERS: ATTEND Internal Medicine Gastroenterology
DX: K50.00 Crohn's disease of small intestine without complications (principal)
CPT/HCPCS: 36415; 80053; 83516; 85025; 85652; 86140; 86480; 86704; 86803; 87340